=== PATIENT | male | born 1995 | race Caucasian/White ===

== ENCOUNTER → 2017-10-03 17:35 | Outpatient (CLI) | payer BC, SELFPAY ==
[2017-10-03 18:00] LABS: Absolute Lymphocyte Count 1.95 X10^3/ul (0.83-4.51); Basophil# 0.02 X10^3/uL; Basophil% 0.2 % (0-1); Eosinophil# 0.12 X10^3/uL; Eosinophils% 1.1 % (0-5); Hemoglobin 13.9 g/dl (13.0-16.5); Lymphocyte # 1.95 X10^3/ul (4.0); Lymphocyte % 18.1 % (19-41); Mean Corp Hgb Conc 33.9 g/gl (32-36); Mean Corpuscular Hgb 30.3 pg (27.0-32.0); Mean Corpuscular Volume 89.5 fL (80-94); Mean Platelet Vol. 9.8 fl (6.2-12.0); Monocyte# 0.69 X10^3/uL; Monocyte% 6.4 % (0-10); Neutrophil # 8.01 X10^3/uL (2.7-7.7); Neutrophil % 74.1 % (47-70); Platelet Count 268 K/mm3 (150-450); RBC Distribution Width CV 12.6 % (11.6-14.6); RBC Distribution Width SD 40.8 fl (35.1-43.9); Red Blood Count 4.58 M/mm3 (4.6-6.2); White Blood Count 10.8 K/mm3 (4.4-11.0)
[2017-10-03 18:02] LABS: POSITIVE COUNT NO; POSITIVE DIFFERENTIAL NO; POSITIVE MORPHOLOGY NO
[2017-10-03 18:30] LABS: AST(SGOT) 31 U/L (15-37); Alanine Aminotransfer ALT/SGPT 79 U/L (16-61); Albumin, Serum 4.2 g/dL (3.2-5.0); Alkaline Phosphatase 88 U/L (45-117); Anion Gap 10 (5-15); BUN 17 mg/dL (7-18); BUN/Creat Ratio 19.3 RATIO (10-20); Calcium,Total 8.8 mg/dL (8.5-10.1); Chloride 106 mmol/L (98-107); Creatinine, Serum 0.88 mg/dL (0.70-1.30); EST Glomerular Filtration Rate 115 mL/min (>60); Est Glom Filt Rate - Afr Amer 139 mL/min (>60); Glucose 108 mg/dL (74-106); Potassium 3.6 mmol/L (3.5-5.1); Protein, Total 8.2 g/dL (6.4-8.2); Sodium Level 139 mmol/L (136-145); Thyroid Stim Hormone (TSH) 1.54 uIU/mL (0.358-3.74)
== END ==
DX: F19.10 Other psychoactive substance abuse, uncomplicated (principal); R53.83 Other fatigue; Z79.899 Other long term (current) drug therapy
CPT/HCPCS: 36415; 80053; 84443; 85025

== ENCOUNTER 2019-02-08 18:48 | Emergency (ER) | payer BC, SELFPAY ==
[2019-02-08 18:49] VITALS: BP 135/79; PULSE 105; RESP 16; TEMP 36.7; O2SAT 98; BMI 35.5
--- NOTE | 2019-02-08 19:06 | ED.DCSUM_ITS ---
- ER Visit Summary Date of Service: 02/08/19 Chief Complaint: Depression with suicidal ideation History of Present Illness: The patient is a 23 M who presents with depression and suicidal ideation that became worse tonight while he was at work. Patient states he has been getting progressively worse over the past 2 weeks. Patient states tonight at work he was having feelings of suicide. Patient states he thought of hanging himself from a hoffmann at work or jumping into a vat of boiling lead at work. Patient states he has an appoint with at the [facility] on 02/20/2019. Patient states he is had family stressors at home which has made his depression worse. Patient states that he also has stress at work which makes his depression worse. Physical Examination: Vital signs are stable. Patient is afebrile. Patient is in no acute distress. Oral mucosa is pink and moist. Neck is supple. Trachea is midline. There is no JVD noted. Heart was regular rate and rhythm. Lungs are clear and equal bilateral. Abdomen is soft. Bowel sounds are normal. There is no tenderness. There is no guarding noted. Skin is warm dry. Cranial nerves II through XII are intact. There are no focal motor or sensory deficits noted. Patient does have a depressed mood and flat affect. Currently, patient is denying suicidal ideation. Test Results: CBC and basic metabolic profile were normal. Urine tox screen was positive for cannabinoids. Serum alcohol level was normal. Emergency Department Course and Treatment: Social work was in to evaluate the patient. She was able to arrange for outpatient follow-up tomorrow. Patient was instructed to follow-up as scheduled tomorrow. Patient understood and was agreeable with the plan. All questions were answered. Disposition: Discharge home Impression: Depression This note was generated with [employer] dictation software. It may contain incorrect words, spelling, and punctuation that were not noted in review of the chart prior to signing ED Disposition - Plan for ED Patient: Disposition: Home or Assisted Living Diagnosis: Depression Instructions: Depression Referrals: Care Physician,No Primary [Primary Care Provider] - Additional Instructions: Follow-up tomorrow as scheduled.
[2019-02-08 19:41] LABS: Absolute Lymphocyte Count 1.72 X10^3/uL (0.83-4.51); Absolute Neutrophil Count 7.9 X10^3/uL (2.0-7.7); Basophil# 0.06 X10^3/uL; Basophil% 0.6 % (0-1); Eosinophil# 0.07 X10^3/uL; Eosinophils% 0.7 % (0-5); Hematocrit 44.5 % (40-54); Hemoglobin 15.1 g/dL (13.0-16.5); Lymphocyte # 1.72 X10^3/ul (4.0); Lymphocyte % 16.1 % (19-41); Mean Corp Hgb Conc 33.9 g/dL (32-36); Mean Corpuscular Hgb 29.8 pg (27.0-32.0); Mean Corpuscular Volume 87.8 fL (80-94); Mean Platelet Vol. 10.5 fl (6.2-12.0); Monocyte# 0.89 X10^3/uL; Monocyte% 8.3 % (0-10); NRBC Flagged by Analyzer 0 % (0-5); Neutrophil # 7.91 X10^3/uL (2.7-7.7); Neutrophil % 74.1 % (47-70); Platelet Count 293 K/mm3 (150-450); RBC Distribution Width CV 12.2 % (11.6-14.6); RBC Distribution Width SD 39.2 fl (35.1-43.9); Red Blood Count 5.07 M/mm3 (4.6-6.2); White Blood Count 10.7 K/mm3 (4.4-11.0)
[2019-02-08 19:48] LABS: Anion Gap 5 (5-15); BUN 12 mg/dL (7-18); BUN/Creat Ratio 14.4 RATIO (10-20); Calcium,Total 9.4 mg/dL (8.5-10.1); Chloride 110 mmol/L (98-107); Creatinine, Serum 0.83 mg/dL (0.70-1.30); EST Glomerular Filtration Rate 122 mL/min (>60); Est Glom Filt Rate - Afr Amer 147 mL/min (>60); Estimated Creatinine Clearance 147.42 ml/min; Glucose 90 mg/dL (74-106); Potassium 4.3 mmol/L (3.5-5.1); Sodium Level 138 mmol/L (136-145)
[2019-02-08 19:49] VITALS: RESP 16
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
[2019-02-08 20:45] LABS: Amphetamine Urine VISTA NEGATIVE (<1000 ng/mL); Barbiturate Urine VISTA NEGATIVE (< 200 ng/mL); Benzodiazepine Urine VISTA NEGATIVE (< 200 ng/mL); Cocaine Urine VISTA NEGATIVE (< 300 ng/mL); Ecstacy Urine VISTA NEGATIVE (< 500 ng/mL); Methadone Urine VISTA NEGATIVE (< 300 ng/mL); PCP Urine VISTA NEGATIVE (< 25 ng/mL); THC Urine VISTA POSITIVE (< 50 ng/mL); Vista UDS pH Range 7
[2019-02-08 20:49] VITALS: RESP 17
[2019-02-08 21:05] VITALS: BP 128/72; PULSE 82; RESP 16; O2SAT 97
--- NOTE | 2019-02-09 18:55 | CM.ED ---
SOCIAL WORK FOLLOW UP CALL CALL TO PATIENT TO FOLLOW UP ON SAFETY PLAN FROM 02/08/19. PATIENT REPORTS ATTENDED [facility] APPOINTMENT THIS DAY AND PLANS TO START PROGRAM ON TUESDAY. ADAM VAZ, AVIONICS TEST TECHNICIAN.
== END 2019-02-08 21:06 | disposition home or self-care (01) ==
PROVIDERS: Emergency Provider Emergency Medicine
DX: F32.9 Major depressive disorder, single episode, unspecified (principal); R45.851 Suicidal ideations; R06.00 Dyspnea, unspecified
CPT/HCPCS: 36415; 80048; 80307; 80320; 85025; 99283; G0480

== ENCOUNTER 2019-02-13 09:00 | Outpatient (RCR) | payer BC, SELFPAY ==
--- NOTE | 2019-02-13 09:10 | BH.SGPN.GN ---
Behaviors/Verbalizations/Mental Status: [] Eye contact is good. Motor activity is appropriate. Appearance is casual. Speech is Appropriate. Mood is depressed. Affect is flat. Thoughts are linear and logical. No evidence of psychosis. Reviewed daily check in sheet and no reports of suicidal ideations or intent. Client Response/Progress/Benefit: [] Pt spoke when prompted. This was pt's first day in IOP. Shared with the group that he is in IOP because her needed help sooner rather than later. Discussed increase in depression which is impacting his functioning. Group was supportive and welcoming which was beneficial. Quiet however attentive. Will continue in IOP to maintain safety, prevent decompensation, and increase healthy coping skills. Narrative Note: []
--- NOTE | 2019-02-13 10:10 | BH.SGPN.GN ---
Behaviors/Verbalizations/Mental Status: []Pt eye contact fair, casually dressed, motor activity appropriate, speech normal rate and tone, mood anxious and depressed, flat affect, thoughts linear and intact, no evidence of delusions or hallucinations. Client Response/Progress/Benefit: []Client passive participant during group discussion AEB pt not providing input, however did appear to listen attentively to others comments. Client appeared to connect with others comments about importance of communicating needs with support people as shown by pt nodding her head in agreement. Client listened to group brainstorm about potential consequences of not having a support system. Group identified benefits of social support as gaining a different perspective, provide validation, help recognize warning signs, provide additional insight, and help us see personal strengths. Client was engaged during the group activity and showed increased engagement as shown by client communicating with peers and cooperating throughout. Appeared to benefit from gaining awareness of barriers that keep people from seeking social support as well as connecting with peers. Client's first day in IOP. Client to continue IOP to increase healthy coping skills, identify and challenge negative thoughts, and prevent decompensation. Narrative Note: []
--- NOTE | 2019-02-13 11:13 | BH.SGPN.GN ---
Behaviors/Verbalizations/Mental Status: []Client alert and oriented, casually dressed and groomed. Eye contact good. Motor activity appropriate. Speech soft. Affect flat, mood depressed. Thoughts linear, logical, no signs of hallucinations or delusions. Client Response/Progress/Benefit: []Client responded well to session, Participating in small group discussion, but overall quiet. Client helped the group discuss and identify different social supports as well as the benefits of different supports. The group identified examples of personal, self-help, professional, spiritual, and co-worker social supports. Group identified benefits of each type of social support. Client reported he wants to improve his self-help supports because client thinks this will motivate client to ask for help.? Client identified barriers keeping client from reaching out to support such as talking himself out of it. Client reported he plans to work on using positive self-talk to overcome his barrier. Client appeared to benefit from increasing understanding of different types of social support and identifying ways he can improve. Client?s first day of IOP, will continue IOP to prevent decompensation of depressive symptoms.?
--- NOTE | 2019-02-13 22:17 | BH.MTP ---
Master Treatment Plan - Patient Information Program Physician:: Dr. Brody Primary Therapist:: Syl Martines, [facility] - Psychiatric Diagnoses Psychiatric Diagnoses:: Major Depressive Disorder, Severe without psychotic features; Anxiety Disorder NOS; mild cluster b traits Diagnosis Code(s):: F33.2 - Estimated LOS Estimated LOS (in weeks):: 6 Problem/Goal #1 - Problem/Goal #1 Stated Goal:: Client will reduce depression, feelings of hopelessness, and suicidal ideation due to Major Depressive Disorder through Intensive Outpatient Program. Description of Barriers: Pt's negative thinking, suicidal ideation, past alcohol abuse, isolative behaviors, and limited social support are all potential barriers to progress. Functional Impact: Pt's anxiety and depression impacting pt's social relationships because not getting out of the house. Pt's anxiety has impacted pt's job performance AEB pt having multiple panic attaks while at work. Prior to admission pt was having suicidal ideation with ideas of hanging self at work or jumping into large barrels of chemicals at work. Pt not funtioning at baseline. Goal Relevant Strengths/Supports: Pt intelligent, resilient, and expresses motivation to get better. - Objectives Objective #1 Stated Objective: Identify and replace 3-4 negative self-talk messages that reinforce depressive symptoms. Interventions: Therapist will help client identify distorted, negative beliefs about self and world and replace those messages with positive, affirmative messages. Discharge Criteria: Client will have achieved this goal when can identify at least 3 negative self-talk messages and replace those messages with positive, affirmative messages. Target Date: 03/27/19 Review Date: 03/13/19 Objective #2 Stated Objective: Pt will decrease depressive symptoms AEB pt?s score on the DSM 5 cross-cutting measure and improve pt?s daily functioning. Interventions: Through groups and individual therapy, pt will be provided with education on cognitive distortions, mistaken beliefs, and identifying and combating negative self-talk. Therapist will assist pt with getting back into the activities she once enjoyed as well as increasing healthy coping strategies. Discharge Criteria: Pt will have met this goal when pt?s score on the DSM 5 cross cutting measure for depression has been decreased and per pt?s report daily functioning has improved. Target Date: 03/27/19 Review Date: 03/13/29 Problem/Goal #2 - Problem/Goal #2 Stated Goal:: Reduce overall frequency, intensity, and duration of the anxiety so that daily functioning is not impaired. Description of Barriers: Pt's negative thinking, suicidal ideation, past alcohol abuse, isolative behaviors, and limited social support are all potential barriers to progress. Functional Impact: Pt's anxiety and depression impacting pt's social relationships because not getting out of the house. Pt's anxiety has impacted pt's job performance AEB pt having multiple panic attaks while at work. Prior to admission pt was having suicidal ideation with ideas of hanging self at work or jumping into large barrels of chemicals at work. Pt not funtioning at baseline. Goal Relevant Strengths/Supports: Pt intelligent, resilient, and expresses motivation to get better. - Objectives Objective #1 Stated Objective: Client will identify 2-3 coping strategies to use to manage anxious symptoms. Interventions: Therapist will help client process triggers to increased symptoms, and then identify ways to manage these feelings and thoughts. Therapist will also work on helping client feel less isolated and understand better behaviors and escalating tendencies. Discharge Criteria: Client will have met this goal when can consistently use at least 2 healthy coping strategies to manage anxious symptoms. Target Date: 03/27/19 Review Date: 03/13/19 Objective #2 Stated Objective: Pt will decrease anxious symptoms AEB pt?s score on the DSM 5 cross-cutting measure improve pt?s daily functioning. Interventions: Through groups and individual therapy, pt will be provided education about anxiety?s impact on body and common physiological reaction to anxiety. Therapist will teach pt appropriate breathing techniques and build healthy coping skills to manage daily anxieties. Discharge Criteria: Pt will have met this goal when pt?s score on the DSM 5 cross cutting measure for anxiety has been decreased and per pt?s report daily functioning has improved. Target Date: 03/27/19 Review Date: 03/13/19
--- NOTE | 2019-02-14 09:59 | BH.DR.ITP ---
Initial Treatment Plan - Patient Information Visit Information: ADMISSION DATE: EXPECTED LOS: 4-6 weeks - Problems/Symptoms Problem #1:: Depression Symptom:: Sadness, hoplessness, passive thoughts of , isolating behavior Problem #2:: Anxiety Symptom:: rumination
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
--- NOTE | 2019-02-14 10:11 | BH.SGPN.GN ---
Behaviors/Verbalizations/Mental Status: [Client alert and oriented, casually dressed and groomed. Eye contact fair. Motor activity appropriate. Speech within normal limits, quiet. Affect constricted, mood depressed. Thoughts linear, logical, no signs of hallucinations or delusions. ] Client Response/Progress/Benefit: [Pt receptive of session, attentive and taking notes though elected not to provide input due to anxiety. Pt connected with discussion on different types of anxiety, as well as the difference between ?normal? anxiety and anxiety disorders. Pt appeared to relate to the group?s examples of the various ways anxiety manifests and symptoms associated with thoughts, physical symptoms, and safety behaviors. This was evidenced by nodding and taking notes. Pt gained awareness of personal physical symptoms which included: feeling weighed down, tight chest, warmer body temperature, blurred vision, and numbness. Pt also identified safety behaviors he has engaged in that provide short term relief but increase anxiety over time. Pt?s safety behaviors included: isolating, dissociation, sleeping, feeling dazed. Pt appeared to benefit from gaining insight to safety behaviors and how anxiety manifests itself, as well as harmful impact of safety behaviors on mental health. Pt appears to be progressing with increasing awareness of his symptoms though progress difficult to infer given limited verbal engagement. Will continue IOP to maintain gains, further improve functioning, and decrease depression.] Narrative Note: []
--- NOTE | 2019-02-14 10:37 | BH.NOTE ---
BH: Inpatient Note - Notes Behavioral Health Inpatient Note: Per written order from Dr. Katz, the following prescription was called into [facility] pharmacy in [place], [place]: Zoloft 50mg PO daily #30, NO refills Ori Owens, MSN, RN
--- NOTE | 2019-02-15 11:13 | BH.SGPN.GN ---
Behaviors/Verbalizations/Mental Status: []Client alert and oriented, casual in appearance. Eye contact good. Motor activity appropriate. Speech within normal limits. Affect depressed. Mood anxious and depressed. Thoughts linear, logical, no signs of hallucinations or delusions. Client Response/Progress/Benefit: []Pt passive participant AEB pt not providing any input during discussion, however pt did appear to listen attentively to peers as shown by pt nodding his head to others comments. Pt appeared to connect with the different relaxation skills discussed. Pt completed worksheet identifying what relaxation skills currently use to manage anxiety and identified what skills he would be willing to try to help manage anxious symptoms. Pt identified he is willing to try the following relaxation skills: putting up lights in his house for calming effect, try different types of meditation, yoga, and boxing. Pt seemed to benefit from increased awareness of healthy skills to manage anxious symptoms and identifying skills willing to practice outside treatment environment. Pt to continue IOP level of care to decrease depression, increase healthy coping skills, and prevent decompensation. Narrative Note: []
--- NOTE | 2019-02-21 08:55 | BH.COMM_ITS ---
Communication Note - Communication with Client Communication Note: Completed intake paperwork with pt today. Completed the [place] Suicide Severity Scale (CSSR-S) Lifetime Recent to assess for suicidal risk. Client has history of two interrupted attempts one in 2017 in which client was going to drive under the influence to get a gun with intent to kill himsef, but his friends stopped him. Client reported in 2018 in which client was going to jump off his two story balcony, but his friends stopped him getting outside. Client reported in the past month he has had suicidal thoughts with methods and intent, denies plan. Client stated he has thought about jumping into 1000 degree liquid metal while at work or hanging himself from a hoffmann while at work. Client reported about two weeks he had some intent to act on the thoughts, but never made any actions towards attempting suicide. Client reports in the past month he has suicidal thoughts less than once a week, which is less frequent compared to his lifetime. Client reported his suicidal thoughts last less than an hour and he can control the thoughts with some difficulty. Client reported his family, friends, and hope for a positive future have deterred him from attempting suicide in the last month. Client denies current suicidal thoughts, intention and plan. Per the CSSR-S pt has a high risk for suicide. Client's suicidal lethality will be continued to monitored throughout the program. Client willing to plan for safety. Client denies access to any weapons. Client feels able to maintain safety, aggreeable to call 911 or go to nearest emergency room if feels unable to maintain safety.
--- NOTE | 2019-02-21 09:36 | BH.COMM_ITS ---
Communication Note - Communication with Client Communication Note: Pt called today to cancel attending IOP this week. Pt stated he hasn't been able to attend IOP this week due to his roommate having a family crisis and pt needing to help his parents this week. Pt reported he still wants to do the program, but too many things have occurred this week that have made that difficult. Pt stated he will return to IOP on Tuesday02/26/19. Pt denied current suicidal ideation, plan or intention to date. This science writer offered pt an individual session for either tomorrow or Tuesday. Pt stated he would think about it and call this science writer to schedule an individual session if he needed it.
== END 2019-02-26 23:59 ==
LOC: BHIOP 09:00
PROVIDERS: Referring Provider Psychiatry & Neurology Psychiatry; Visit Provider Psychiatry & Neurology Psychiatry
DX: F33.2 Major depressive disorder, recurrent severe without psychotic features (principal); F41.9 Anxiety disorder, unspecified; R45.851 Suicidal ideations
CPT/HCPCS: H0035; 90853

== ENCOUNTER 2019-02-27 09:00 | Outpatient (RCR) | payer BC, SELFPAY ==
--- NOTE | 2019-02-27 10:10 | BH.SGPN.GN ---
Behaviors/Verbalizations/Mental Status: []Client alert and oriented, casually dressed and groomed. Eye contact fair. Motor activity appropriate. Speech within normal limits. Affect flat, mood depressed. Thoughts linear, logical, no signs of hallucinations or delusions Client Response/Progress/Benefit: []Client passive participant. Appeared to be listening to peers, but he declined to share. Group worked together to identify barriers to making changes or taking action in their lives which included: fear of the unknown, the perception of others, fear of leaving one?s comfort zone, overthinking, and lack of motivation. Group also identified the benefits of change which included; improved relationships, improved mental wellness, increased confidence, and feelings of accomplishment. Client declined to share what he feels is taking control over his mental wellness. Benefited from group through awareness of personal areas he wants to improve and benefits to taking action towards mental wellness. To continue IOP level of care to prevent further decompensation and reduce isolative behaviors.
--- NOTE | 2019-02-27 11:18 | BH.SGPN.GN ---
Behaviors/Verbalizations/Mental Status: []Client alert and oriented, casual dress, hygiene tended to. Eye contact fair. Motor activity appropriate. Speech within normal limits. Affect flat, mood depressed. Thoughts linear, logical, no signs of hallucinations or delusions. Client Response/Progress/Benefit: []Pt passive participant AEB pt not providing input throughout session, however appeared attentive to others comments. Pt listened attentively to group discussion about impact lack of action has on progress. Pt completed worksheet in which pt identified a problem area to focus on, a SMART goal to help him work on problem area, and identify additional supports needed to be successful. Pt identified he wants to work on increasing his motivation. Pt identified his SMART goal is to engage in 1-2 activities per week to increase his motivation level to accomplish more in his day. Pt identified making a list of things he wants to get done as something that could help support him with accomplishing identified goal. Pt progress limited due to pt?s inconsistent attendance and limited verbal participation during group sessions. Pt to continue IOP to prevent decompensation, increase healthy coping skills, and identify and challenge distorted thoughts. Narrative Note: []
--- NOTE | 2019-02-28 09:33 | BH.NA_ITS ---
Physical Data - Vital Signs Pulse Rate: 72 Respiratory Rate: 16 Blood Pressure: 116/76 - Height/Weight Height: 1.8 m Weight:: 113.398 kg Weight in Pounds: 250.0 lbs Current Medication Compliance - Medication Compliance Do you take your medication as prescribed?: Yes Do you need assistance with taking medication?: No Have you had side effects from medication?: No Nutritional History - Appetite Nutritional Instructions:: If client shows signs of a swallowing problem, weight change of 10 pounds or more in the last month, or is on a diabetic diet, the physician will review and request a dietitian consult, as appropriate. All unintentional weight loss will be referred to the physician for decision on need for dietitian consult. Describe your appetite:: Fair, Poor Have you noticed a change in your eating habits lately?: Yes - decreased appetite without significant weight loss Functional Assessment - Sleep Pattern Describe any problems with sleeping: Mauri describes difficulty falling asleep most nights. - Activities Motor Activity:: Functional Sensory/Communication Assess - Communication Problems Do you have difficulty understanding what people are saying?: No Do you have trouble putting your thoughts into words or expressing what you want to say?: No Do people ever have trouble understanding what you say?: No What is your primary language?: Lao Learning Assessment - Learning Barriers Learning Barriers:: Ready to learn Medical Problems/History - Pain Assessment Do you have acute or chronic pain?: No - Additional History Additional comments:: see PMHx in Summary Surgical History - Surgical History Have you had any surgeries? If so, list type and date:: Yes - appy Substance Abuse - Substance Abuse Please describe substance abuse in the last 30 days:: Client notes occassional marijuana use. He does have a history of ETOH abuse, but has been sober x2 years. Denies tobacco use. Mental Status Summary - Mental Status Significant Findings/Observations on Appearance and Mood:: Mauri is A&O x4, cooperative with interview, and makes good eye contact. Steady gait. Appropriate grooming and hygiene. Casually dressed. Normal activity while seating, frequent yawning. Speech is clear and normal rate and volume. Mild anhedonia. Mood congruent affect. Logical associations. Normal process. No symptoms of delusi ons. Denies hallucinations, SI, and HI. Suicide Assessment - Suicidal Ideation Are you currently or have you been suicidal in the past?: Yes Suicidal Intentional Rating Scale (SIRS): Suicidal thoughts (past) Physician Notification: If Active suicidal thoughts/Will not contract for s afety is checked, contact physician and document in the Physician Notification section below. Past Psychiatric History - MH Treatment Hx ECT Therapy Details:: N/A Fall Risk Assessment - Age Age: Less than 60 - Mental Status Mental Status: Willing & able to ask for assistance when needed - Physical Status Physical Status: No problems - Impairments Impairments: None - Elimination Elimination: Continent AND independent - Gait or Balance Gait or Balance: Walks independently - Hx of Falls History of falls in the past 6 months: No known history - Medications/Substances Psychotropics:: Antidepressants Medications/substances used within the past 24 hours or ordered to administer: 1-2 of the medications/substances listed above - Total Score Total Points:: 1 RN Summary of Impressions - Impressions Recommendations: Include psychiatric and medical issues, treatment planning recommendations, and discharge planning needs. Impressions: Psychiatric Issues: MDD, KEYLA, PTSD Impression: General Medical Conditions: N/A Impressions: Treatment Planning Recommendations: Client denies any side effects from starting Zoloft. Client notes that he has been more tired, but this may related to his work schedule more than the medication. He notes that his overall mood is somewhat improved in the past two weeks. - Level of Care How do the client's current symptoms and functional deficits support need for this level of care?: Currently denies any SI, but does not some passive thoughts of and wanting to start drinking and using marijuana again; he has been able to challenge and overcome these thoughts. Mauri's mental health has been decompensating for sever months; he is unable to recognize a specific incident or stressor that triggered this decline. Client does have a good support system, including his family and roommates. He endorses social avoidance, isolation, decreased appetite, and difficulty falling asleep. IOP will promote gains and prevent further decompensation.
[2019-02-28 09:39] VITALS: BP 116/76; PULSE 72; RESP 16
--- NOTE | 2019-02-28 10:09 | BH.SGPN.GN ---
Behaviors/Verbalizations/Mental Status: [Client alert and oriented, casually dressed and groomed. Eye contact fair. Motor activity appropriate. Speech within normal limits. Affect congruent, mood anxious, depressed. Thoughts linear, logical, no signs of hallucinations or delusions.] Client Response/Progress/Benefit: [Client was a passive participant throughout, however did well to engage via note-taking, and listening attentively to peers, and nodding in agreement. The group discussed the quote and how the emotion anger is not good or bad, but one can respond to anger in healthy or harmful ways. Client worked with the group to define anger and its causes, as well as the internal and external impacts of anger. Group identified potential consequences of unhealthy management of anger to include: increased stress, loss of relationships, guilt, more problems being created, physical pain, and worsening mental health symptoms. Client identified underlying factors of his anger which included: anxiety, sadness, feeling like a disappointment/failure, being dismissed by others, and being overwhelmed/stressed. Client stated isolating, shutting down, and giving up/quitting are common responses he has when feeling angry. Benefited from group by increasing awareness of the negative impacts of unmanaged anger and underlying factors that contribute to personal anger. Progress noted as client reports increased self-awareness and ability to cope with anxiety and depression related sx. Will continue IOP tx to further reduce depression and isolation, increase motivation and use of social supports, and promote mood stability.] Narrative Note: []
--- NOTE | 2019-02-28 11:15 | BH.SGPN.GN ---
Behaviors/Verbalizations/Mental Status: []Client alert and oriented, casually dressed and groomed. Eye contact good. Motor activity appropriate. Speech within normal limits. Affect flat, mood depressed. Thoughts linear, logical, no signs of hallucinations or delusions Client Response/Progress/Benefit: []Client responded well to session, quiet, but participating in the activity. Client able to connect how managing anger takes patience, calming skills, and multiple efforts. Group identified the benefits of effectively managing anger which included; advocating for oneself, reducing consequences, reducing mental health symptoms, and expressing one?s needs. Client appeared attentive as the group identified coping skills to more effectively manage anger which included; deep breathing, self-compassion, taking a step back, DDD, challenging perspective, and using S.T.O.P. Client appeared to benefit from gaining coping skills to more effectively manage anger. Progress limited as client?s attendance in IOP has been variable. Will continue IOP level of care to prevent decompensation and improve mood stability.
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
--- NOTE | 2019-03-06 09:01 | BH.SGPN.GN ---
Behaviors/Verbalizations/Mental Status: []Client alert and oriented, casual dress, hygiene tended to. Eye contact fair. Motor activity appropriate. Speech within normal limits. Affect flat, mood anxious. Thoughts linear, logical, no signs of hallucinations or delusions. Reviewed client?s symptom tracker, no signs of suicidal ideation, plan, or intent as of today. Client Response/Progress/Benefit: []Pt responded well to session AEB pt sharing his thoughts and feelings openly with group and listened attentively to peers. Emotion for today is anxious. Pt reported current stressor is worried about job security because his job has cut back his overtime and possibly won't get overtime for the rest of the year. Pt stated he is anxious if he doesn't get his overtime hours then he won't be able to afford to visit his family over the holidays. Pt noted progress as I'm starting to enjoy life little more and not feeling as anxious. 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 Progress noted in application of healthy coping skills to manage anxiety outside of treatment environment. Continued IOP tx recommended to maintain gains, prevent decompensation, and continue to utilize healthy coping skills. Narrative Note: []
--- NOTE | 2019-03-06 10:13 | BH.SGPN.GN ---
Behaviors/Verbalizations/Mental Status: []Client alert and oriented, casually dressed and groomed. Eye contact good. Motor activity appropriate. Speech within normal limits. Affect constricted, mood anxious. Thoughts linear, logical, no signs of hallucinations or delusions. Client Response/Progress/Benefit: []client engaged throughout group discussion and activity. Contributed to discussion on quote of the day as he shared ?your problems aren?t just going to fix themselves, it takes effort.? Client reported one needs to use their resources and make goals to grow. Group worked together to come up with common negative forces in life which can hold them back from growth. These included; toxic relationships, negative thoughts, cognitive distortions, lack of self-care, and trauma. Group then worked together to identify common positive forces which help us grow. These included; healthy coping skills, positive support, self-care, patience, realistic and positive thinking, and self-awareness. Client was attentive during psychoeducation on the importance of utilizing many forces to help one grow. Benefited from group with increased insight and awareness on the impact of negative and positive forces on mental wellness. Client?s attendance has been variable which may be hindering his ability to work towards treatment goals. Will continue IOP to prevent decompensation and reduce isolation.?
--- NOTE | 2019-03-06 11:11 | BH.SGPN.GN ---
Behaviors/Verbalizations/Mental Status: [Client alert and oriented, casually dressed and groomed. Eye contact fair to good. Motor activity appropriate. Speech within normal limits. Affect constricted, mood anxious, dysthymic. Thoughts linear, logical, no signs of hallucinations or delusions.] Client Response/Progress/Benefit: [Client willing to participate in activity and provided supportive feedback as well as willing to consider suggestions from fellow participants throughout. He engaged in discussion connecting activity to review of how positive and negative forces impact life and mental wellness and the importance of balancing forces in life. Client identified personal positive forces that aid in progressing toward mental health goals include: personal supports, having a consistent paycheck, family, having increased ability to manage anxiety, willingness to ask for help, and therapy. Client indicated personal negative forces include: difficulties managing mental health sx, fear of failure, difficulties in communicating, loneliness, and negative self-talk/low self-esteem. Progress noted in client ability to identify ways in which internal forces can impact personal growth. Client seemed to benefit from increased awareness of personal positive and negative forces in life and impact they have on mental health and wellness. Client to continue IOP level of care to continue to decrease anxiety and depression, improve ability to regulate emotions, promote increased use of skills learned, and prevent decompensation.] Narrative Note: []
--- NOTE | 2019-03-06 22:13 | BH.MDN ---
Multi-Disciplinary Note - Note 60-min Individual Time Started:: 12:10 Date: 03/06/19 Purpose of session/treatment goals addressed:: Purpose of session was to assess pt's current symptoms and stressors. Other topics included: increasing awareness to anxiety triggers and challenging distorted thoughts. Eye Contact:: Fair Motor Activity:: Appropriate Appearance:: Casual Speech:: Appropriate Mood:: Anxious, Dysthymic Affect:: Constricted Thoughts:: Linear, Logical, No evidence of hallucinations/delusions noted Staff Interventions:: Therapist used open ended questions to elicit pt's current symptoms and stressors. Therapist worked with pt to identify anxiety triggers. Therapist assisted pt with challenging distorted thoughts. Provided support by using active listening. Client Response:: Pt reported current stressor is uncertainity of his job security since his workplace recently cut some of his hours. 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 Pt reported he knows he can get another job, but doesn't want to have to learn a new job or lose any wages. With assistance from therapist able to recognize this situation is out of his control. Recognizes he can focus on making sure he completes his daily responsibliites while at work. When discussing anxiety triggers pt stated going out in public and being in crowded places causes increased anxiety. Pt stated as a result he tends to avoid going out in public and doesn't go anywhere there will be large crowds. Pt reported he can get out of the house to hang out with his group of friends, but typically only when his friends are just hanging out at a house. Pt shared the thought of going out in public makes think a lot of what-if thoughts. Pt gave example what if I into someone that I have bad blood with? and what if I get into a fight. Pt stated in the [place] town [place] in he has negative relationships fromt he past and he is anxious of how he would react if runs into certain people. Pt receptive to therapist assisting pt with challenging his distorted thoughts. Pt stated he is starting to recognize he is using catastrophizing thoughts and predicting the future. Risks/Concerns:: denies current suicidal ideation, plan or intention to date. Progress Toward Goals/Plan:: Progress noted with pt's increased awareness of anxiety triggers and how current response of avoidance is reinforcing anxiety symptoms. Pt to continue IOP level of care to increase awareness, challenge distorted thoughts and prevent decompensation. Time Stopped:: 13:10
--- NOTE | 2019-03-07 08:42 | BH.COMM ---
Communication Note - Communication with Client Communication Note: was scheduled to see psychiatry today however cancelled.
--- NOTE | 2019-03-08 22:14 | BH.MDN ---
Multi-Disciplinary Note - Note 60-min Individual Time Started:: 13:50 Date: 03/08/19 Purpose of session/treatment goals addressed:: Purpose of session was to assess pt's current symptoms and stressors. Other topics: reviewed homework from last session, increased awareness of physiological symptoms for agitation and anxiety, and discussed healthy coping skills. Eye Contact:: Fair Motor Activity:: Appropriate Appearance:: Casual Speech:: Appropriate Mood:: Depressed Affect:: Constricted Thoughts:: Linear, Logical, No evidence of hallucinations/delusions noted Staff Interventions:: Therapist used open ended questions to elicit pt's current symptoms and stressors. Therapist reviewed homework from last individual therapy session. Therapist provided education about importance of recognizing physiological symptoms of anxiety and agitation. Therapist assisted pt with identifying healthy coping skills can use to help manage anxiety and agitation. Client Response:: Pt reported he completed homework of identfying triggers for anxiety and agitation. Anxiety triggers include: feeling overwhelmed or behind at work, uncertainity if doing something right, worried going to return to unhealthy coping, and when has urges to drink. Reported agitation triggers include: when things aren't going right, other people's mistakes, and wondering if he is doing good enough job. Pt stated anxiety physical symptoms include: shaking, restlessness, energy through his body, and nausea. Identified agitation physical symptoms to include: increased body temperature, feeling energy through body, and tense muscles. Pt stated current healthy copng uses for anxiety includes: breathing, laying down and going for awalk. Identified current coping skills for agitation include: changing envrionment and taking a break. Pt expressed understanding imporance of recognizing his warning signs so can utilize healthy coping skills sooner. Pt connected with learning about different breathing and mindfulness skills can utilize to manage anxiety and agitation. Risks/Concerns:: Denies current suicidal ideation, plan or intention to date. Progress Toward Goals/Plan:: Progress noted with increased awareness of triggers, warning signs, and healthy coping skills. Pt continues to struggle with urges to drink and distorted thoughts telling him to give up trying. Pt recommended to continue IOP to challenge distorted thoughts, decrease isolative behaviors, and prevent decompensation. Time Stopped:: 14:50
--- NOTE | 2019-03-12 10:07 | BH.SGPN.GN ---
Behaviors/Verbalizations/Mental Status: []Client alert and oriented, neatly dressed and groomed. Eye contact good. Motor activity appropriate. Speech within normal limits. Affect congruent, mood anxious, depressed. Thoughts linear, logical, no signs of hallucinations or delusions. Client Response/Progress/Benefit: []Client passive participant during group AEB client attentively listening and nodding to comments. Client agreed with peers that it is important to have social supports, but one can have unrealistic expectations for their supports which can cause problems. Client listened as the group brainstormed potential consequences of not having a support system. Client listened as group identified benefits of social support as building trust, less anxiety, less loneliness, different perspective, sense of purpose, resources, hope, and accountability. Client was active during the group activity and was contributing ideas. Appeared to benefit from gaining awareness of barriers that keep people from seeking social support as well as identifying the benefits of increasing support. Client is quiet during group, so progress is difficult to measure in the group setting. Client will continue IOP level of care as his symptoms continue to impact his daily functioning.
--- NOTE | 2019-03-12 11:08 | BH.SGPN.GN ---
Behaviors/Verbalizations/Mental Status: [Pt alert and oriented, eye contact fair to good, casually dressed, motor activity appropriate, speech normal rate and tone, mood anxious and depressed, congruent affect, thoughts linear and intact, no evidence of delusions or hallucinations.] Client Response/Progress/Benefit: [Client a semi-active participant AEB client contributing to discussion when prompted, listened attentively to others, and taking notes. Client worked with the group to make connections between barriers faced in the challenge activity and strategies for managing these barriers with utilizing social supports in daily life. Client reflected that a personal barrier in using current supports is pushing people away due to anxiety and fear of being judged. Client contributed to discussion about the different types of support and benefits different types of support can provide. Client worked with the group to identify strategies for improving development of new supports and better utilization of current supports. Client identified he would like to improve internal support by finding more time to engage in self-care activities because he would be able to decrease isolation and anxiety as a result. Client seemed to benefit from identifying a type of support he would like to improve upon and creating actionable steps to promote follow-through. Client to continue IOP level of care to prevent decompensation, increase use of healthy supports, and improve anxiety and depression management skills.] Narrative Note: []
--- NOTE | 2019-03-13 09:02 | BH.SGPN.GN ---
Behaviors/Verbalizations/Mental Status: []Client alert and oriented, casually dressed and groomed. Eye contact good. Motor activity appropriate. Speech within normal limits. Affect flat, mood dysthymic. Thoughts linear, logical, no signs of hallucinations or delusions. Reviewed client?s symptom tracker, no risk for suicidal ideation, plan, or intent as of 03/13/19. Client Response/Progress/Benefit: []Client responded somewhat well to session, appeared attentive during peers? check-ins, but withdrawn when asked to share. Client declined to participate during his turn to check-in this morning. Client?s self-assessment scores were within his baseline, and there was no suicidal ideation. Client?s progress mild as client often declines to share during group sessions and his attendance is variable. Will continue IOP tx to prevent decompensation, decrease depressive symptoms, and increase application of coping skills.?
--- NOTE | 2019-03-13 10:10 | BH.SGPN.GN ---
Behaviors/Verbalizations/Mental Status: [] Eye contact is good. Motor activity is appropriate. Appearance is casual. Speech is Appropriate. Mood is depressed. Affect is flat. Thoughts are linear and logical. No evidence of psychosis. Client Response/Progress/Benefit: [] Pt was an active participant in group activity, however did not provide much insight during discussion. Pt was quiet however attentive when peers came up with a definition for coping which was how we deal with problems that we encounter. Group noted that coping skills can be healthy and unhealthy. Participated once or twice while group worked together to identify unhealthy coping skills which included; substance abuse, avoiding, isolating, lashing out, self-harm, over-thinking, spending money, eating, and escaping reality through TV/games. Group began to identify ways to break the cycle of unhealthy coping skills which included; awareness, addressing issues, and learning healthy ways to cope. Pt was an active participant in his small group. Narrative Note: []
--- NOTE | 2019-03-13 11:15 | BH.SGPN.GN ---
Behaviors/Verbalizations/Mental Status: []Pt alert and oriented, eye contact good, casually dressed, motor activity appropriate, speech normal rate and tone, mood dysthymic, constricted affect, thoughts linear and intact, no evidence of delusions or hallucinations. Client Response/Progress/Benefit: []Client listened attentively to peers and provided limited input during discussion. Client appeared to connect with the activity from second group and helped the group identify benefits of having a strong foundation of internal and external coping skills. Client helped the group discuss the different categories of coping skills and provided examples. Client agreed with peers it's important to use variety of coping skills. Client created a coping skills ?menu? from the five categories of coping skills. Client selected mindfulness and thought challenge as coping skills to try. Client appeared to benefit from increasing his repertoire of healthy coping skills. Progress noted in client?s increased self-awareness of how his unhealthy coping has impacted his mental health. Will continue IOP to stabilize moods, increase use of healthy coping skills and prevent decompensation. Narrative Note: []
--- NOTE | 2019-03-14 09:57 | BH.COMM ---
Communication Note - Communication with Client Communication Note: pt cancelled again today. Was scheduled to see psychiatry again today. Has missed appt with psychiatry the past two weeks.
--- NOTE | 2019-03-15 22:14 | BH.MDN ---
Multi-Disciplinary Note - Note 45-min Individual Time Started:: 13:53 Date: 03/15/19 Purpose of session/treatment goals addressed:: Purpose of session was to assess pt's current symptoms and stressors. Other topics included: identifying possible triggers for increased anxiety, assessing lethality, and reviewing healthy coping skills. Eye Contact:: Fair Motor Activity:: Appropriate Appearance:: Casual Speech:: Appropriate Mood:: Anxious Affect:: Constricted Thoughts:: Linear, Logical, No evidence of hallucinations/delusions noted Staff Interventions:: Therapist used open ended questions to elicit pt's current symptoms and stressors. Therapist processed recent increase in anxious symptoms. Therapist assessed pt's current suicidal lethality due to return of suicidal thoughts on Tuesday. Therapist reviewed with pt healthy coping skills to utilize to manage mental health symptoms. Provided support by using active listening and validating emotions. Client Response:: Pt reported on Tuesday he forgot to take his medications. Pt stated he noticed his motivation decreased and was apathetic. Pt stated while at work he experienced suicidal thoughts, but was able to manage his thoughts with self-talk. Pt reported on Tuesday when he had the suicidal thoughts he didn't have any intention and plan to act on the thoughts. Pt stated Tuesday was the first time he had suicidal thoughts in several weeks. Pt reported he made sure to take his medication on Tuesday. 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 Pt stated he is trying to manage his anxiety about work by focusing on what is actually happening, not looking at the what-ifs. Pt stated he might work on his resume just so he is prepared in case anything does happen to his job. Pt reported yesterday during group he was experiencing increased anxiety with panic like symptoms. Pt stated he started having thoughts about quitting IOP and going back to just drinking alcohol to cope. Pt shared he felt this way for about 20 minutes then his anxiety lessened. Pt reported overall he feels like his mood has been improving, experiencing happier days. Pt stated he has improved sleep, increased socialization, and maintaining sobriety. Pt reported this week he will focus on consistently taking his medications, using positive thinking, cooking his meals for lunch at work ahead of time, and going hiking. Risks/Concerns:: Denies current suicidal ideation, plan or intention to date. Pt had recent suicidal thought on Tuesday, which is first suicidal thought in several weeks. Pt attributes to having suicidal thought because didn't take his medication that day. Will continue to monitor lethality. Future focused. Agreeable to call 911 or go to nearest emergency room if feel unable to maintain safety. Progress Toward Goals/Plan:: Progress noted with pt utilizing healthy coping skills of thought challenge, hiking, decreasing isolation, and maintaining sobriety. Continues to struggle with anxious symptoms at work and when in large crowds. Pt recommended to continue IOP level of care to continue use of healthy coping, challenge distorted thoughts, and prevent decompensation. Time Stopped:: 14:45
--- NOTE | 2019-03-19 10:20 | BH.SGPN.GN ---
Behaviors/Verbalizations/Mental Status: [] Eye contact is poor. Motor activity is appropriate. Appearance is casual. Speech is Appropriate. Mood is depressed. Affect is flat. Thoughts are linear and logical. No evidence of psychosis Client Response/Progress/Benefit: [] Pt did not participate in group discussion. Passive participant in group activity. Attentive while peers worked together to define pitfalls in mental health which group identified were; hidden or unsuspected obstacles, emotional traps, when we defeat ourselves, and unforeseen obstacles which impact progress. Group discussed the impacts of pitfalls which can cause one to; give up, revert back to unhealthy coping, isolate, define oneself as a failure. Attentive as group briefly discussed the emotions and pitfalls which occurred during the activity noting that it caused anxiety, anger, fear, and at times they wanted to give up. Due to limited participation in group it is unknown if he was able to make connections between activity and MH. Narrative Note: []
--- NOTE | 2019-03-19 11:21 | BH.SGPN.GN ---
Behaviors/Verbalizations/Mental Status: []Client alert and oriented, casually dressed and groomed. Eye contact fair. Motor activity appropriate. Speech within normal limits. Affect constricted, mood euthymic. Thoughts linear, logical, no signs of hallucinations or delusions. Client Response/Progress/Benefit: []Client quiet during session, participating in small group discussion, but declining to share in the larger group setting. Client helped group process the activity and how it connects to pitfalls in real life. Client completed a worksheet where he identified personal pitfalls impacting mental health progress. Client declined to share his pitfalls with the group. Client recognized that in order to become less vulnerable to pitfalls it takes self-awareness and healthy coping skills. Client reported he wants to work on using the INGA (accomplishment, closeness, and enjoyment) strategy to promote productivity and increase motivation. Benefited from identifying personal pitfalls and strategies to overcome these pitfalls. Client self-reports reduced isolation, but he continues to be quiet during group sessions. Will continue IOP tx to promote the use of healthy coping skills and further reduce depressive symptoms. Narrative Note: []
--- NOTE | 2019-03-19 15:27 | BH.TPR ---
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 Active participant. Completed DSM-5 cross cutting scales which indicates a 52% reduction in symptoms since starting the program. Notes 33 % reduction in depression scores and 50% reduction in anxiety scores. Pt continues to utilize skills, but admits he sometimes struggles with consistent use of skills. Significant progress noted. DSM5 cross-cutting scales indicate reduced symptoms at 4 weeks. Better able to manage anxious symptoms while at work. Increased interest in activities. Decreased isolative behaviors. We discussed discharge. Plan is to discharge in 2 weeks. Given numbers to set up MH therapist and psychiatrist. Will continue in IOP to maintain gains and prevent decompensation. Treatment plan goals still left to accomplish Status of Current Problems and Symptoms: Struggles at times with isolation, limited support, anxiety, and hopelessness however much improved. Continues to decrease alcohol consumption, not drinking in an attempt to cope. Problem #1 Problem Name:: depression Status of Goals:: Pt is making progress on objectives 1 and 2. Obj 1- Able to identify a couple negative self-talk messages however struggles to replace w/o guidance. Obj. 2 - Notes 33% reduction in depression DSM5 QUESTIONAIRE. Team Recommendations:: Continue with IOP as he is responding well. Plan to discharge in 2 weeks. Problem #2 Problem Name:: Reduce overall frequency, intensity, and duration of the anxiety Status of Goals:: Pt is making progress on objectives 1 and 2. Has identified several coping strategies to utilize when overwhelmed. Sometimes struggles with consistently applying skills. Obj. 2 - Notes 50% reduction in depression DSM5 QUESTIONAIRE. Team Recommendations:: Continue with IOP as he is responding well. Plan to discharge in 2 weeks.
--- NOTE | 2019-03-19 22:15 | BH.MDN ---
Multi-Disciplinary Note - Note 30-min Individual Time Started:: 09:12 Date: 03/19/19 Purpose of session/treatment goals addressed:: Purpose of session was to assess pt's current symptoms and stressors. Other topics included: reviewing treatment progress, problem solving anxious situation, and identifying areas to continue working on in IOP. Eye Contact:: Good Motor Activity:: Appropriate Appearance:: Casual Speech:: Appropriate Mood:: Euthymic Affect:: Congruent Thoughts:: Linear, Logical, No evidence of hallucinations/delusions noted Staff Interventions:: Therapist used open ended questions to elicit pt's current symptoms and stressors. Therapist elicited pt's thoughts about treatment progress since starting IOP. Therapist assisted pt with problem solving specific anxious situation. Therapist worked with pt to identify areas want to work on in remaining time in IOP. Client Response:: Pt reported over the weekend he had fun hanging out with friends and went with a friend hiking. Pt stated his mood was positive thoughout the weekend. Pt identified treatment progress to include: decrease anxeity when around people, no longer being a recluse, decreased self-deprecating thoughts, increased motivation, and able to combat suicidal or negative thoughts. Pt stated currently having some anxiety about not knowing how best to support his roommate. Pt reported his roommate talks to him about how she is feeling and he doesn't know what to say so he tries to avoid having conversation with her. pt receptive to idea on talking openly with his roommate about how he can best support her. Pt stated in the last couple weeks of IOP treatment he wants to work on improve self-worth and continuing to challenge distorted thoughts. Risks/Concerns:: Denies current suicidal ideation, plan or intention to date. future focused. Progress Toward Goals/Plan:: Progress noted with pt reporting improved mood, decreased anxious symptoms, decreased isolative behaviors, and improved ability to challenge distorted thoughts. Continues to struggle with managing anxiety at times which leads to avoidance as a coping skill. Pt recommended to continue IOP to continue challenging distorted thoughts, improve self-worth, and prevent decompensation. Time Stopped:: 09:44
--- NOTE | 2019-03-20 10:08 | BH.SGPN.GN ---
Behaviors/Verbalizations/Mental Status: []Client alert and oriented, neatly dressed and groomed. Eye contact good. Motor activity appropriate. Speech within normal limits. Affect flat, mood dysthymic. Thoughts linear, logical, no signs of hallucinations or delusions. Client Response/Progress/Benefit: []Client was mostly a passive participant, but he took notes and often nodded. Client appeared to connect with the quote and the benefits of celebrating small steps taken to accomplish a goal. Group defined goals and identified the benefits of developing goals which included; improving self-confidence, gaining a sense of accomplishment, gaining a sense of purpose, increased motivated/productivity, and better mental health. Client agreed with peers that it is helpful at times to reevaluate and change one?s goal to promote mental wellbeing. Group also identified barriers to setting and accomplishing goals which include; fear, unrealistic expectations, lack of follow through, and not knowing where to start. Attentive during education on developing SMART goals. Benefited from increasing awareness of goal-setting methods and practicing goal setting. Progress noted as shown by client?s increased IOP attendance and report of reduced depressive symptoms. Will continue IOP tx to promote application of coping skills and further decrease depressive symptoms.?
--- NOTE | 2019-03-20 11:13 | BH.SGPN.GN ---
Behaviors/Verbalizations/Mental Status: [Client alert and oriented, casually dressed and appropriately groomed. Eye contact good. Motor activity appropriate. Speech within normal limits. Affect congruent, mood anxious and dysthymic. Thoughts linear, logical, no signs of hallucinations or delusions. ] Client Response/Progress/Benefit: [Pt attentive throughout, mostly quiet though nodded at times and provided some input throughout discussion. Engaged in creating own mental health SMART goal. Pt identified goal as: ?Reduce self-doubt and anxiety by taking 5 minutes to clear my mind and think about what?s going on around me?. Pt reported this goal will benefit him by increasing his positive thinking and improving ability to take proactive steps in managing anxious thoughts. Pt identified potential barriers to accomplishing goal to include: feelings of defeat, shutting down, and isolating. Pt reported he will overcome barriers by ?rising above and reminding myself that feelings aren?t in control of me? as well as ?Give myself a push and talk to someone?. Seemed to benefit from identifying a SMART goal and coming up with strategies to overcome potential barriers. Progress noted in pt ability to create a small relevant goal aimed at improving mental health symptoms. Pt to continue IOP to increase healthy coping skills, decrease depression, and prevent decompensation.] Narrative Note: []
--- NOTE | 2019-03-21 09:10 | BH.SGPN.GN ---
Behaviors/Verbalizations/Mental Status: [] Eye contact is good. Motor activity is appropriate. Appearance is casual. Speech is Appropriate. Mood is anxious. Affect is congruent. Thoughts are linear and logical. No evidence of psychosis. Reviewed daily check in sheet and no reports of suicidal ideations or intent. Client Response/Progress/Benefit: [] Pt spoke with prompted. Emotion for today is anxious. Pt shared with the group improved mood over the past week. Notes that while stressed he feels that he is more effective at managing his moods. Discussed some new coping skills which he has been utilizing more consistently. He is unclear what has triggered the change however believes IOP, med changes, and consistent counseling have played a big part. Smiled at times during group discussion. 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 Shared his business idea with peers. Benefited from group support and encouragement.Progress noted per pt report. Will continue in IOP to maintain safety, prevent decompensation, and increase healthy coping skills. Narrative Note: []
--- NOTE | 2019-03-21 10:20 | BH.SGPN.GN ---
Behaviors/Verbalizations/Mental Status: []Eye contact fair. Motor activity is appropriate. Appearance is casual. Speech is appropriate rate and tone. Mood is euthymic. Affect is congruent with mood. Thoughts are linear and logical. No evidence of psychosis. Client Response/Progress/Benefit: []Client was an active participant in group activity and discussion, providing insight throughout. Client connected with the topic and worked with group to identify common internal barriers that keep people stuck. Client identified his current reality is his mood starting to improve, but continues to struggle with reverting back to unhealthy coping skills at times. Client shared his realistic, desired reality would be improved outlook on life, ability to lget go of certain stressors, and consistent use of healthy coping skills. Benefited from group as client was able to identify current and desired mental health state. Will continue IOP to prevent decompensation, increase utilization of healthy coping skills, and challenge distorted thoughts. Narrative Note: []
--- NOTE | 2019-03-21 11:15 | BH.SGPN.GN ---
Behaviors/Verbalizations/Mental Status: [] Eye contact is good. Motor activity is appropriate. Appearance is casual. Speech is Appropriate. Mood is euthymic. Affect is full. Thoughts are linear and logical. No evidence of psychosis. Client Response/Progress/Benefit: [] Pt was an active participant in group discussion and activity. Able to identify obstacles and challenges which are preventing him from achieving his desired reality which included; isolating, unhealthy coping, self-doubt, and negative thinking. Active during activity. Pt along with peers identified 7 obstacles during the activity and developed 3 strategies to overcome those 7 obstacles to wellness and desired reality. Group wrote down the strategies and added them to their program binder. Benefited from group by identifying obstacles and solutions to desired reality. Narrative Note: []
--- NOTE | 2019-03-21 13:51 | PCM.BH.PN_ITS ---
Progress Note Progress Note: History of Present Illness/Interim History: [] Patient is a 23-year-old single male who is seen in follow-up at the [facility]. I last saw him 5 weeks ago when he was admitted to the program. Patient states that he is doing well in the IOP program. His anxiety symptoms are much improved. He is still somewhat depressed at times but feel his his mood is also much less sad than it was. He denies any suicidal ideation whatsoever now. He is sleeping better about 6 hours a night and has a better routine to keep regular hours in his sleep. He feels he is learning skills at the IOP program to help him manage his himself better. He is tolerating his Zoloft 50 mg p.o. daily well. Current Psychiatric Medications: [Zoloft 50 mg p.o. daily (x5 weeks).] Mental Status Examination: [Patient is a 23-year-old male who appears normal for stated age. He is casually dressed and groomed with good hygiene. He is cooperative during the interview and has no psychomotor agitation or retardation. Speech is normal rate and rhythm and fluent with no pressure. Mood is depressed but improving. Affect is full and euthymic today. Thought processes are organized and goal-directed. Thought content: No evidence of suicidal or homicidal ideation. No evidence of thoughts of . No evidence of hallucinations or delusions. Judgment is intact Insight improving. Impulsivity low.] Diagnoses: [] Colbert I: [Major depressive disorder recurrent severe without psychosis, anxiety disorder NOS] Colbert II: [] Cluster B traits?mild Colbert III: Negative Colbert IV:[]] Primary support, career issues Plan: [She will continue the IOP program at [facility] as the support, education, structure, individual and group therapy will hopefully prevent worsening of his condition. He agrees that if it any time he does not feel safe he will notify us or go to the emergency room. The risks, options, possible complications and side effects of the medication was were discussed with the patient and he understands and accepts these. The patient refuses an increase in his Zoloft. He feels he is improved to a level that he is okay with. He refused any further medications or increase in dose. I will refill his Zoloft prescription. I will see him in follow-up in 3 to 4 weeks.]
--- NOTE | 2019-03-27 10:02 | BH.SGPN.GN ---
Behaviors/Verbalizations/Mental Status: []Client alert and oriented, neatly dressed and groomed. Eye contact fair. Motor activity appropriate. Speech within normal limits. Affect congruent-nodding, mood euthymic. Thoughts linear, logical, no signs of hallucinations or delusions. Client Response/Progress/Benefit: []Client was attentive and often nodding during discussion. Client participated in discussion of the quote and shared belief that people do not always have the choice of their circumstances, but one can control their response. Client nodding and attentive while the group identified barriers that keep one from choosing a new and healthier path to mental wellness which included; unhealthy habits, fear of failure, procrastination, stigma, lack of supports, and negative thinking. Attentive during psychoeducation on the chapters of life. Client agreed with peers to choose a different path, one needs awareness and opposite action. Client reported he was not sure what made him want to change his mental health path. Benefited from increased awareness and education on barriers to choosing new wellness paths and chapters of life. Progress is difficult to measure in a group setting as client is often quiet and declines to share. However, his daily symptoms tracker scores show a reduction in intensity of symptoms which is a positive. Will continue IOP tx to prevent decompensation and further increase use of healthy coping skills. Narrative Note: []
--- NOTE | 2019-03-27 13:51 | BH.MDN_ITS ---
Multi-Disciplinary Note - Note 30-min Individual Time Started:: 12:14 Date: 03/27/19 Purpose of session/treatment goals addressed:: Purpose of session was to assess pt's current symptoms and stressors. Other topics included: reviewing treatment progress, reinforcing healthy coping, and discussion about tentative discharge plan. Eye Contact:: Good Motor Activity:: Appropriate Appearance:: Casual Speech:: Appropriate Mood:: Euthymic Affect:: Congruent Thoughts:: Linear, Logical, No evidence of hallucinations/delusions noted Staff Interventions:: Therapist used open ended questions to elicit pt's current symptoms and stressors. Therapist processed recent panic attack while at work, assisting pt with identfying potential triggers and skills that helped pt manage his anxiety. Therapist reviewed pt's treatment progress since starting [facility]. Therapist reinforced which healthy coping skills and strategies seem to be most effective with helping pt manage emotions. Therapist discussed tentative discharge plan. Therapist gave pt homework to call his outpatient counselor to set up a appointment. Client Response:: Pt reported he had a rough night while at work. Pt stated he had a mini panic attack while working in which he chose to go to the staff break room for twenty minutes to help calm himself down. Pt reported he is unsure if his panic attack was triggered from taking his medications later in the day than usual or if it was because he was feeling stress with doing a new task at work that wasn't going well. Pt stated in the future he plans to practice any new tasks with his co-workers to help build his confidence so he doesn't feel as anxious or make as many mistakes. Pt reported his perspective was more negative throughout the rest of the night, but he was able to finish his shift and despite having urge to drink alcohol he refrained from drinking. Pt stated he reminded himself of the consequences of drinking, which helped him maintain his sobriety. Pt reported he continued to be anxious on Tuesday afternoon, but was able to challenge his perspective in the evening which helped increase his positivity and improve his mood. Pt stated his weekend went really well with improved mood, hanging out with friends, and ability to manage his emotions easily. Pt reported he is doing better with regulating emotions, using healthy coping skills, challenging his negative thinking, maintaining sobriety, and being more social. Pt stated he believes he is ready to discharge from [facility] next week. Pt reported he will contact his therapist to schedule a counseling appointment so it doesn't have any lapse in treatment post-discharge from [facility]. Risks/Concerns:: Pt denies current suicidal ideation, plan, or intention to date. future focused. Progress Toward Goals/Plan:: Pt demonstrating progress as evidenced by pt reportin improved mood, increased use of healthy coping skills, increased socialization, challenging negative and distorted thoughts, and no suicidal ideation in two weeks. Pt did have a panic attack last week, but was able to manage his emotions more effectively following the panic attack. Pt did report some concerns about experiencing fuzzy reality on Tuesday evening, but isn't sure if it was due to his sleep deprivation. Plan is to inform psychiatrist about the fuzzy reality experience. Plan is also for pt to discharge from [facility] next week. Time Stopped:: 12:50
--- NOTE | 2019-03-28 13:39 | BH.COMM ---
Communication Note - Communication with Client Communication Note: Pt did not show for IOP today.
== END 2019-03-29 23:59 ==
LOC: BHIOP 09:00
PROVIDERS: Referring Provider Psychiatry & Neurology Psychiatry; Visit Provider Psychiatry & Neurology Psychiatry
DX: F33.2 Major depressive disorder, recurrent severe without psychotic features (principal); F41.9 Anxiety disorder, unspecified
CPT/HCPCS: H0035; 90832; 90834; 90837; 90853

== ENCOUNTER 2019-04-02 09:00 | Outpatient (RCR) | payer BC, SELFPAY ==
[2019-03-30 01:12] VITALS: BP 116/76; PULSE 72; RESP 16
--- NOTE | 2019-04-02 09:06 | BH.SGPN.GN ---
Behaviors/Verbalizations/Mental Status: [Client alert and oriented, casual dress, hygiene tended to. Eye contact good. Motor activity appropriate. Speech within normal limits. Affect congruent, mood euthymic and anxious. Thoughts linear, logical, no signs of hallucinations or delusions. Reviewed client?s symptom tracker, no signs of suicidal ideation, plan, or intent as of today.?] Client Response/Progress/Benefit: [Pt receptive of session, engaged in group discussion and willing to process with the group. Emotion for today is nervous/excited, as Pt explained he has been able to see the progress he is making which is evidenced by increased confidence levels and ability to socialize with others in group settings. Pt went on to describe this as a mental health ?win? 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 Additional win identified as successfully managing a crisis in the workplace without experiencing panic. Noted current stressor as having to decide what to begin investing his free time in between two new projects. Pt appeared to benefit from the support of the group and structured environment. Pt recommended continued IOP tx to continue to promote change behaviors, increase consistent skill application to anxiety management, and prevent decompensation.] Narrative Note: []
--- NOTE | 2019-04-02 10:20 | BH.SGPN.GN ---
Behaviors/Verbalizations/Mental Status: []Client alert and oriented, neatly dressed and groomed. Eye contact good. Motor activity appropriate. Speech within normal limits. Affect congruent, mood euthymic. Thoughts linear, logical, no signs of hallucinations or delusions. Client Response/Progress/Benefit: []Client was attentive and quiet, but he was nodding frequently throughout session. Client reported asking for help was a big change for him. Listened as the group identified benefits to making changes in our lives which included: improving one?s mental health, increasing confidence, breaking out of one?s comfort zone, and reducing unhealthy coping skills. Group then identified barriers to change or what keeps us from making changes which included: it is easier to not change, lack of trust, lack of resources, lack of courage to change, lack follow through, negative thinking, and fear. Client participated along with group in activity where they identified and discussed the emotions related to change. Client was attentive during psychoeducation on the change process. Benefited from increased awareness and understating of emotions, benefits, and barriers related to change. Progress noted as client reports decreased depressive symptoms, no more suicidal ideations, and improved ability to cope with stressors. Will discharge from IOP tomorrow, but he can benefit from one more IOP day to reinforce healthy coping skills. Narrative Note: []
--- NOTE | 2019-04-02 11:20 | BH.SGPN.GN ---
Behaviors/Verbalizations/Mental Status: []Client alert and oriented, casually dressed and groomed. Eye contact good. Motor activity appropriate. Speech within normal limits. Affect congruent, mood euthymic. Thoughts linear, logical, no signs of hallucinations or delusions. Client Response/Progress/Benefit: []Client engaged participant AEB pt listening attentively to others and engaging in group activity. Client participated in the activity and processed emotions and barriers associated with making change. Client appeared to connect with discussion on weighing the pros and cons associated with change and benefited from learning to do so through use of decisional balance sheet. Identified he is currently in maintenance stage of change because he is focusing on reinforcing the healthy skills he has recently adapted to help maintain progress. Progress noted in ability to identify which stage of change she is currently in. Recommended continued IOP to maintain gains, continue to use healthy coping skills and prevent decompensation. Narrative Note: []
--- NOTE | 2019-04-03 09:52 | BH.AFTERPLAN ---
Aftercare Plan - Demographics Treatment End Date:: 04/03/19 Psychiatrist:: Shiela Katz Psychiatrist Office #:: [phone] [facility]/IOP Therapist:: Syl Martines Therapist Phone #:: [phone] - Medications Home Medications: Home Medications Sertraline HCl [Zoloft] 50 mg PO DAILY 02/14/19 Sertraline HCl [Zoloft] 50 mg PO DAILY 30 Days #30 tab 03/21/19 - Plan Details Progress/Aftercare Plan Details:: Per self-report symptoms questionnaire you have a 100% decrease in both anxiety and depressed symptoms at discharge compared to when you started IOP. You have applied healthy coping skills to help manage depressed and anxious symptoms. You have improved awareness of your distorted and negative thought patterns. You not only have increased awareness of negative thoughts, but also are able to challenge and reframe thoughts. You are engaging in more activities outside the home with going to social events, working on new projects, and decreasing isolative behaviors. Strategies for Success:: 1. Continue positive self-talk. 2. Opposite Action - remember if you wait to feel good before you do something, you will wait a long time. 3. Recognize and challenge negative and distorted thoughts. 4. Engage in self-care activities on a daily basis. 5. NATURE - make time to enjoy and explore various hikes - Appointments Appointments/Referrals to Other Services:: 1. Schedule with new outpatient therapist Gemini Magallon at the counseling center for [facility]. 2. On waitlist for psychiatry at [facility].
--- NOTE | 2019-04-03 10:20 | BH.SGPN.GN ---
Behaviors/Verbalizations/Mental Status: []Client alert and oriented, casually dressed and groomed. Eye contact good. Motor activity appropriate. Speech within normal limits. Affect congruent to topic being discussed, mood euthymic, anxious, positive. Thoughts linear, logical, no signs of hallucinations or delusions. Client Response/Progress/Benefit: []Pt passive participant AEB pt providing limited input during discussion however appeared to listen attentively to peers. Pt appeared to connect with others comments about the negative impact of defining self by mental illness. Group identified social stigma can come from how the media, society, and upbringing portray mental illness. Group identified media and society portray mental health as: dangerous, negative, not good enough, abnormal, and romanticize it. Pt appeared to agree with others that mental health stigma contributes to people hiding the fact they have any mental health problems out of fear of judgment. Pt seemed to benefit from increased awareness of how societal and internal mental health stigma can impact functioning. Pt has made significant progress on his treatment goals and no longer meet medical necessity for [facility] level of care. Pt is to discharge from [facility] today. Narrative Note: []
--- NOTE | 2019-04-03 11:25 | BH.SGPN.GN ---
Behaviors/Verbalizations/Mental Status: [Client alert and oriented, casually dressed and groomed. Eye contact fair to good. Motor activity appropriate. Speech within normal limits. Affect congruent, mood anxious and dysthymic. Thoughts linear, logical, no signs of hallucinations or delusions. ] Client Response/Progress/Benefit: [Client responded well to session, engaged in activity, actively listening and nodding throughout discussion. Group identified the benefits of addressing stigma which included; increased self-confidence, decreased feelings of shame or unworthiness, improved relationships, and increased willingness to ask for help. Client helped the group identify thoughts and behaviors people engage in that reinforce stigma. Client discussed that self-deprecating humor and unrealistic expectations of self have influenced his own opinion on mental health and reinforced stigma. Group brainstormed strategies to combat social and perceived stigma which included; changing personal language used, sharing positive mental health related media, communicating with supports, attending therapy, and increasing psychoeducation of self and others to reduce labeling behaviors. Client reported he will practice increasing use of affirmations in order to increase self-confidence and reduce self-deprecating language when becoming anxious . Appeared to benefit from increasing awareness of impact of stigma on mental health and identifying strategies for beginning to combat self and social stigma related to mental health. Client recommended continued IOP tx to increase consistent use of internal coping mechanisms, maintain gains made, continue to improve anxiety and depression management, and prevent decompensation.] Narrative Note: []
--- NOTE | 2019-04-03 15:01 | BH.MDN_ITS ---
Multi-Disciplinary Note - Note 30-min Individual Time Started:: 09:25 Date: 04/03/19 Purpose of session/treatment goals addressed:: Purpose of session was to assess current symptoms and stressors. Other topics included: identifying treatment progress, identifying strategies that can help him with stay successful, and solidfying aftercare post-discharge. Eye Contact:: Good Motor Activity:: Appropriate Appearance:: Casual Speech:: Appropriate Mood:: Euthymic Affect:: Congruent Thoughts:: Linear, Logical, No evidence of hallucinations/delusions noted Staff Interventions:: Therapist utilized open ended questions to elicit pt's current symptoms and stressors. Therapist elicited pt's thoughts about IOP treatment progress. Therapist collaborated with pt to identify strategies and coping skills that can help pt maintain treatment progress. Therapist provided support by using active listening. Client Response:: Pt reported he feels ready for IOP discharge because he has made significant progress since starting IOP. Pt reported he has had signficiant decrease in both his anxious and depressive symptoms. Pt shared he is able to go in public experiencing manageable anxiety. Pt stated she has a positive outlook on life and hasn't experienced suicidal thoughts in over 3 weeks. Pt reported she has improved motivation and is starting to enjoy engaging in activities again. Pt identified strategies that can help him maintain progress include: positive self-talk, opposite action, challenging negative thoughts, self-care, and going on hikes. Pt stated he is still on the wait list for a psychiatrist, but has enough medications as of right now. Pt reported he has his counseling appointment on 04/16/19 with his new therapist at the [facility] center [facility]. Risks/Concerns:: Pt denies current suicidal ideation, plan or intention to date. Progress Toward Goals/Plan:: Pt has made significant treatment progress with reduction in anxious and depressive symptoms. Pt has increased use of healthy coping skills to manage mental health symptoms. Pt has decreased isolative behaviors, is able to identify and challenge distorted thoughts, and has increased pleasure in activities. Pt is to discharge from IOP today. Plan is for pt to have follow up counseling on 04/16/19 at the counseling center and is still on the wait list for psychiatry. Time Stopped:: 09:55
--- NOTE | 2019-04-03 15:26 | BH.DS ---
Discharge Summary - Demographics Date of Admission:: 02/13/19 Discharge Date: 04/03/19 Presenting Problems at Admission:: Pt presented at admission from referral by [facility] for worsening depression and increased suicidal ideation. ideation. Pt endorsed at admission his mood as down and very sad. He endorsed hopelessness, worthlessness, anhedonia and guilt. He was not able to function as well at work or at home and has been isolating himself. Discharge Diagnoses:: Major depressive disorder recurrent severe without psychosis, anxiety disorder NOS Reason for Discharge:: Pt has made significant progress on his treatment progress and no longer meets medical necessity for [facility] level of care. - Treatment Progress During Treatment & Response: Per DSM 5 cross cutting measure pt has a 100% decrease in both anxiety and depressed symptoms at discharge when compared to admission self-report scores. Pt applied healthy coping skills to help manage depressed and anxious symptoms. Pt has improved awareness of distorted and negative thought patterns with ability to challenge and reframe thoughts. Pt is engaging in more activities outside the home with going to social events, working on new projects, and decreasing isolative behaviors. Pt was a quiet, passive participant during group sessions, but attentively listened to peers comments and took notes. Pt often completed homework given from group and individual sessions. Issues Still to be Addressed:: Pt could benefit from continued focus on reinforcing healthy coping skills, challenge distorted thoughts, and continuing to increase social connections. Also could benefit from increasing self-confidence. Discharge Recommendations/Instructions:: 1. Counseling appointment on 04/16/19 at the [facility]. 2. Pt currently on wait list for psychiatry at [facility]. Discharge Handout: Complete Discharge Handout with client on aftercare options and continuity of care.
== END 2019-04-03 14:00 | disposition home or self-care (01) ==
LOC: BHIOP 09:00
PROVIDERS: Referring Provider Psychiatry & Neurology Psychiatry; Visit Provider Psychiatry & Neurology Psychiatry
DX: F33.2 Major depressive disorder, recurrent severe without psychotic features (principal); F41.9 Anxiety disorder, unspecified
CPT/HCPCS: H0035; 90832; 90853

== ENCOUNTER 2019-10-11 17:32 | Emergency (ER) | payer BC, SELFPAY ==
[2019-10-11 17:32] VITALS: BP 152/77; PULSE 81; RESP 16; TEMP 36.6; O2SAT 98; BMI 33.4
--- NOTE | 2019-10-11 17:45 | ED.VIS.GEN ---
History of Present Illness Chief Complaint: Wound Narrative: Patient presenting for evaluation after a tick bite. Patient reports that he noted a tick on his left wrist. He was able to remove it, but reports there is a small rash in the area. Patient reports that he thinks it was only present for potentially couple of hours. He denies any fevers. Denies any constitutional symptoms. He denies any medication allergies or underlying medical problems. Review of systems otherwise negative. Past Medical History - Allergies and Home Meds Allergies/Adverse Reactions: Allergies No Known Allergies Allergy (Verified 02/14/19 10:21) Primary Care Physician: Care Physician,No Primary [Primary Care Provider] - Smoking Status: Never smoker Review of Systems All systems negative except as indicated General: Denies: Chills, Fever, Sweats Eyes: Denies: Visual changes - bilaterally, Diplopia ENT: Denies: Rhinorrhea, Sore throat Cardiovascular: Denies: Chest pain, Palpitations Respiratory: Denies: Dyspnea, Cough, Dyspnea on exertion Gastrointestinal: Denies: Abdominal pain, Nausea, Vomiting, Diarrhea, Melena, Hematochezia Genitourinary: Denies: Dysuria, Hematuria, Frequency Musculoskeletal: Denies: Back pain, Extremity Pain Skin: Reports: Rash Neurological: Denies: Headache, Weakness, Numbness Physical Exam Vital Signs/Narrative: Vital Signs Temp Pulse Resp BP Pulse Ox 10/11/19 17:32 97.8 F 81 16 152/77 H 98 Inital Vital Signs reviewed: Yes General: Well nourished, Well developed. Negative for: Acute Distress Head: Normocephalic, Atraumatic Eyes: EOMI ENT: Moist mucous membranes Cardiovascular: Regular rate, Regular rhythm Respiratory: No distress Extremities: - - Right forearm exam shows an area of erythema measuring approximately half a centimeter that is blanching. No evidence of large target lesion. No tenderness to the area or lymphangitic streaking. Diagnostic/Tx/Re-eval - Medical Decision Making Patient presented status post tick bite. He does not appear to have any retained head parts or mouthparts. There is a mild amount erythema in the area, so I feel that the benefits outweigh the risks of providing the patient with a single one-time dose of 200 mg of doxycycline. He was provided with this, and was given signs and symptoms for which to return. ED Disposition - Plan for ED Patient: Disposition: Home or Assisted Living Diagnosis: Tick bite Instructions: ED Bite Tick Abx Tx Referrals: Care Physician,No Primary [Primary Care Provider] - Additional Instructions: Followup with your PCP as needed
[2019-10-11] MEDS: Doxycycline 100 MG CAPSULE 200 MG PO (17:57)
== END 2019-10-11 18:17 | disposition home or self-care (01) ==
LOC: ED 18:09
PROVIDERS: Emergency Provider Emergency Medicine
DX: S60.862A Insect bite (nonvenomous) of left wrist, initial encounter (principal); R21 Rash and other nonspecific skin eruption; W57.XXXA Bitten or stung by nonvenomous insect and other nonvenomous arthropods, initial encounter; Y93.9 Activity, unspecified; Y92.9 Unspecified place or not applicable; Y99.9 Unspecified external cause status
CPT/HCPCS: 99283

== ENCOUNTER 2020-10-16 16:25 | Emergency (ER) | payer BC, SELFPAY ==
[2020-10-16 16:26] VITALS: BP 125/83; PULSE 118; RESP 15; TEMP 36.4; O2SAT 96; BMI 36.9
--- NOTE | 2020-10-16 16:33 | EKG12_ITS ---
Test Reason : CP Blood Pressure : / mmHG Vent. Rate : 114 BPM Atrial Rate : 114 BPM P-R Int : 168 ms QRS Dur : 098 ms QT Int : 324 ms P-R-T Axes : 037 -51 033 degrees QTc Int : 446 ms Sinus tachycardia Left anterior fascicular block Abnormal ECG Confirmed by JOANNE MICHEL, SHIVA ([id number]), offline editor DORIS LEMON ([id number]) on 10/21/2020 10:02:24 A M Referred By: YASMANY Confirmed By:JAQUELIN RUBIO MD
--- NOTE | 2020-10-16 16:34 | EDS_ITS ---
HPI History of Present Illness Chief Complaint: Chest Pain Informant: patient Onset/Context/Timing Onset: Today Activity at onset: sudden Timing: Intermittent Quality: Positive for Heaviness and Sharp Location: Substernal, Right Chest and Left Chest Current Severity: Moderate Maximum Severity: Moderate Worsened By: Movement of Arm and Breathing Relieved By: Nothing Narrative Narrative: The patient is a 24-year-old male with history of anxiety and depression who presents to the emergency department chest pain. Patient states he was in his normal state of health. He states that he was at work. He began to have chest pain. He states it is a sharp, stabbing pain. He states the middle of his chest and is worse when he moves or breathes. Does not radiate down his arms. He states he never really had pain like this before. He cannot recall any injury. He denies any fevers or chills. He denies cough. He has no history of pulmonary embolus or DVT. He has no history of coronary vascular disease. Prior Similar Symptoms: No Recent Illness/Hospitalization: No CVD Risk Factors: Positive for Family History 1' </=55; Negative for Hypertension, Diabetes and Hypercholesterolemia PE Risk Factors: Negative for Recent Travel/Surgery, Recent Immobilization, Prior DVT or PE, Cancer and OCP + Smoking + >/=35 PFSH [facility] Medical History Anxiety Severe recurrent major depression without psychotic features Home Medications bupropion HCl [Wellbutrin XL] 150 mg PO DAILY 10/16/20 [History Last Taken Unknown] cariprazine [Vraylar] 1.5 mg PO DAILY 10/16/20 [History Last Taken Unknown] naproxen 500 mg PO BID #14 tab 10/16/20 [Rx Last Taken Unknown] Allergy/AdvReac Type Severity Reaction Status Date / Time No Known Allergies Allergy Verified 10/16/20 16:28 Surgical History (Updated 10/16/20 @ 16:49 by Sharon Pardo) History of appendectomy Social History Smoking Status: Never smoker ROS ROS ED Constitutional Constitutional ED: Denies chills or fever(s) Eyes Eyes: Denies blurry vision or change in vision ENT ENT ED: Denies ear pain or sore throat Cardiovascular Cardiovascular: Reports chest pain Respiratory/Chest Respiratory/Chest: Denies cough, dyspnea or dyspnea on exertion Gastrointestinal Gastrointestinal: Denies abdominal pain, nausea or vomiting Genitourinary Genitourinary ED: Denies dysuria or urinary frequency Musculoskeletal Musculoskeletal: Denies arthralgias or myalgias Integumentary Denies rash Neurologic Neurologic: Denies headache(s) or paresthesias Psychiatric Psychiatric: Denies anxiety or depression Endocrine Endocrinology: Denies polydipsia or polyuria Allergic/Immunologic Allergic/Immunologic ED: Denies urticaria EXAM Physical Exam Const Vital Signs: 10/16/20 16:26 10/16/20 16:48 Temperature 97.6 F L Temperature Source Temporal Pulse Rate 118 H Respiratory Rate 15 Respiratory Effort Normal Non-Labored Respiratory Pattern Normal Blood Pressure 125/83 H Blood Pressure Mean 97 Pulse Ox 96 Oxygen Delivery Method Room Air Room Air Oxygen Flow Rate (L/min) 97 Positive well nourished and well developed General Appearance ED: well developed HEENT Reports normocephalic, head/scalp atraumatic and moist mucous membranes Eyes PERRL and EOMs intact bilaterally Neck no lymphadenopathy and supple General: Negative for tenderness Chest Wall inspection of chest normal Resp normal respiratory effort and clear to auscultation bilaterally Cardio regular rhythm and no murmurs Rate: tachycardic GI normal to inspection, nondistended, normoactive bowel sounds Palpation: Negative for tender, guarding or rebound tenderness present Back/Spine no CVA tenderness Cervical Spine: Negative for cervical spine tenderness Thoracic Spine / Upper Back: Negative for thoracic spinal tenderness Extremity normal to inspection General Extremety ED: Negative for tenderness Neuro oriented x3 and CN's II-XII intact bilaterally Neuro Narrative: No focal deficits appreciated. Sensorium / Orientation: alert Psych mental status grossly normal Skin no rashes or lesions noted, no wounds and skin turgor normal Heart Score History: Slightly/Non-Suspicious ECG: Normal Age: </= 45 years Risk Factors: 1 or 2 Risk Factors Troponin: </= Normal Limit Score: 1 MDM MDM MDM Narrative Medical decision making narrative: The patient presents to the emergency department chest pain. There is a component that is reproducible. He has no history of coronary vascular disease. EKG was obtained on arrival. It was sinus tachycardia. There is no evidence of acute ischemia. The patient is low risk. He has a heart score of 1. Metabolic work-up was pursued. D-dimer was negative. Chest x-ray reviewed by both myself and the radiologist shows no focal infiltrative process, pneumothorax, or other dangerous process. D-dimer is negative. Cardiac enzymes are also unremarkable. At this point, I do feel the patient is safe for outpatient follow-up. I will treat him with anti-inflammatories. He will be discharged home. Impression 1. Chest pain Lab Data Attestation: I reviewed the patient's lab results. Labs: Laboratory Results - last 24 hr 10/16/20 10/16/20 10/16/20 16:36 16:36 16:36 WBC 10.5 RBC 4.93 Hgb 15.0 Hct 43.5 MCV 88.2 MCH 30.4 MCHC 34.5 RDW Std Deviation 38.6 RDW Coeff of Rashid 12.0 Plt Count 325 MPV 10.2 Immature Gran % (Auto) 0.300 Neut % (Auto) 77.3 H Lymph % (Auto) 14.6 L [place] % (Auto) 7.0 Eos % (Auto) 0.5 Baso % (Auto) 0.3 Absolute Neuts (auto) 8.1 H Absolute Lymphs (auto) 1.53 Nucleated RBC % 0 D-Dimer Quant (PE/DVT) < 0.27 L Sodium 136 Potassium 3.6 Chloride 106 Carbon Dioxide 23.0 Anion Gap 7 BUN 17 Creatinine 0.96 Estim Creat Clear Calc 126.37 Est GFR (MDRD) Af Amer 123 Est GFR (MDRD) Non-Af 102 BUN/Creatinine Ratio 17.7 Glucose 102 Calcium 9.5 Troponin I < 0.015 Radiography Diagnostic Testing: Radiology Impression Chest X-Ray 10/16/20 16:45 IMPRESSION: No radiographic evidence of acute cardiopulmonary disease. at 1659 Reported and signed by: Robbie Hughes MD Electronically Signed: Robbie Hughes MD at 16:58 EDT Tel , Service support , Discharge Plan Triage Chief Complaint: Chest Pain ED Provider: Mauri Silva Dx/Rx/DC Orders Instructions: ED Chest Pain, Noncardiac Prescriptions: New naproxen 500 MG tablet 500 mg PO BID Qty: 14 RF: 0 No Action bupropion HCl [Wellbutrin XL] 150 mg tablet extended release 24 hr 150 mg PO DAILY RF: 0 Vraylar 1.5 mg capsule 1.5 mg PO DAILY RF: 0 Primary Care Provider: Care Physician,No Primary Referrals: Care Physician,No Primary [Primary Care Provider] -
--- NOTE | 2020-10-16 16:38 | NURSING ---
NO OLD EKGS
[2020-10-16 16:45] LABS: Absolute Lymphocyte Count 1.53 X10^3/uL (0.83-4.51); Absolute Neutrophil Count 8.1 X10^3/uL (2.0-7.7); Basophil# 0.03 X10^3/uL; Basophil% 0.3 % (0-1); Eosinophil# 0.05 X10^3/uL; Eosinophils% 0.5 % (0-5); Hematocrit 43.5 % (40-54); Lymphocyte # 1.53 X10^3/ul (0.83-4.51); Lymphocyte % 14.6 % (19-41); Mean Corp Hgb Conc 34.5 g/dL (32-36); Mean Corpuscular Hgb 30.4 pg (27.0-32.0); Mean Corpuscular Volume 88.2 fL (80-94); Mean Platelet Vol. 10.2 fl (6.2-12.0); Monocyte# 0.73 X10^3/uL; NRBC Flagged by Analyzer 0 % (0-5); Neutrophil # 8.11 X10^3/uL (2.7-7.7); Neutrophil % 77.3 % (47-70); Platelet Count 325 K/mm3 (150-450); RBC Distribution Width SD 38.6 fl (35.1-43.9); Red Blood Count 4.93 M/mm3 (4.6-6.2); White Blood Count 10.5 K/mm3 (4.4-11.0)
--- NOTE | 2020-10-16 16:45 | RAD_ITS ---
HISTORY: chest pain EXAMINATION/TECHNIQUE: XR Chest 1 View: Portable AP upright chest x-ray COMPARISON: 08/13/16 FINDINGS: LINES/DEVICES: None. LUNGS: No consolidation, edema or effusion. No pneumothorax. MEDIASTINUM AND CARDIOVASCULAR STRUCTURES: Cardiac silhouette not enlarged. Central airways and mediastinal contour are unremarkable. BONES AND SOFT TISSUES: No acute bony abnormalities. RAD/Chest 1 View (Portable) IMPRESSION: No radiographic evidence of acute cardiopulmonary disease. at 1659 Reported and signed by: Robbie Hughes MD Electronically Signed: Robbie Hughes MD at 16:58 EDT Tel , Service support ,
[2020-10-16 17:01] LABS: Anion Gap 7 (5-15); BUN 17 mg/dL (7-18); BUN/Creat Ratio 17.7 RATIO (10-20); Calcium,Total 9.5 mg/dL (8.5-10.1); Chloride 106 mmol/L (98-107); Creatinine, Serum 0.96 mg/dL (0.70-1.30); EST Glomerular Filtration Rate 102 mL/min (>60); Est Glom Filt Rate - Afr Amer 123 mL/min (>60); Estimated Creatinine Clearance 126.37 ml/min; Glucose 102 mg/dL (74-106); Potassium 3.6 mmol/L (3.5-5.1); Sodium Level 136 mmol/L (136-145)
[2020-10-16] MEDS: Aspirin 81 MG TAB.CHEW 324 MG PO (17:10)
[2020-10-16] MEDS: Ondansetron 4 MG/2 ML Vial IV (17:11)
[2020-10-16] MEDS: 0.9% Normal Saline 1,000 ML 150 ML IV (17:11)
[2020-10-16 17:17] LABS: D-Dimer Quantitative (DVT/PE) < 0.27 FEU/ug/m (0.27-0.49)
[2020-10-16 17:47] VITALS: BP 132/87; PULSE 87; RESP 20; O2SAT 93
== END 2020-10-16 17:49 | disposition home or self-care (01) ==
LOC: ED 16:54
PROVIDERS: Emergency Provider Emergency Medicine
DX: R07.89 Other chest pain (principal); F33.2 Major depressive disorder, recurrent severe without psychotic features; F41.9 Anxiety disorder, unspecified; Z79.1 Long term (current) use of non-steroidal anti-inflammatories (NSAID); Z79.899 Other long term (current) drug therapy
CPT/HCPCS: 71045; 80048; 84484; 85025; 85379; 93005; 96361; 96374; 99285; J7030; A4216; J2405

== ENCOUNTER 2022-06-22 12:16 | Emergency (ER) | payer BC, SELFPAY ==
[2022-06-22 12:17] VITALS: BP 132/92; PULSE 112; RESP 16; TEMP 36.6; O2SAT 98; BMI 36.9
--- NOTE | 2022-06-22 12:50 | ED.VIS.GI ---
HPI HPI - GI History of Present Illness Chief Complaint: Abd Pain Informant: patient Abdominal Pain/Flank Pain Onset: Today Timing: Intermittent Quality: Cramping Location: Diffuse Current Severity: Mild Maximum Severity: Mild Nausea/Vomiting/Emesis GI Symptom: Negative for Nausea or Vomiting Diarrhea/Melena/Hematochezia GI Symptom: Negative for Diarrhea, Melena or Hematochezia Associated Symptoms Associated Symptoms: Negative for Dysuria, Frequency, Hematuria or Urgency Narrative Narrative: 26-year-old male past medical history depression anxiety. Prior appendectomy. No other abdominal surgeries. He has had some constipation last several days. Did have a bowel movement yesterday. States has been eating more fast food recently. Denies any dysuria. No fever. No vomiting. Prior similar symptoms: Yes Recent Illness/Hospitalization: No PFSH PFSH Medical History Anxiety COVID-19 Severe recurrent major depression without psychotic features Home Medications bupropion HCl 150 mg 24 hr tablet, extended release (Wellbutrin XL) 150 mg PO DAILY 10/16/20 [History Last Taken Unknown] cariprazine 1.5 mg capsule (Vraylar) 1.5 mg PO DAILY 10/16/20 [History Last Taken Unknown] naproxen 500 mg tablet 500 mg PO BID #14 tabs 10/16/20 [Rx Last Taken Unknown] Allergy/AdvReac Type Severity Reaction Status Date / Time No Known Allergies Allergy Verified 06/22/22 12:17 Surgical History History of appendectomy Social History Smoking Status: Never smoker ROS ROS ED ROS Narrative Constipation. Review of Systems ROS Unobtainable: Denies due to encephalopathy Constitutional Constitutional ED: Denies chills or fever(s) ENT ENT ED: Denies ear pain Cardiovascular Cardiovascular: Denies chest pain Respiratory/Chest Respiratory/Chest: Denies cough or dyspnea Gastrointestinal Gastrointestinal: Reports constipation; Denies abdominal pain, diarrhea, melena, nausea or vomiting Genitourinary Genitourinary ED: Denies dysuria or hematuria Musculoskeletal Musculoskeletal: Denies arthralgias Integumentary Denies abscess Neurologic Neurologic: Denies headache(s) Psychiatric Psychiatric: Denies anxiety Endocrine Endocrinology: Denies polydipsia Hematologic/Lymphatic Hematologic/Lymphatic: Denies easy bleeding Allergic/Immunologic Allergic/Immunologic ED: Denies mouth swelling or tongue swelling EXAM Physical Exam Narrative Exam Narrative: 20-year-old male no acute distress vital signs stable afebrile. H EENT exam unremarkable. Moist Riis membranes. Neck nontender no lymphadenopathy. Lungs clear to auscultation bilaterally. Heart regular rhythm rate about 100 no murmur. Abdomen soft nondistended normal bowel sounds no peritoneal signs. Completely nontender abdomen. Right upper right lower quadrant unremarkable. No hernia or mass. No signs of obstruction. Soft with normal bowel sounds. Moving all 4 extremities. Nontender no edema. Back nontender. Neurologically is awake alert with no focal motor deficits. Const Vital Signs: 06/22/22 12:17 Temperature 97.9 F Temperature Source Temporal Pulse Rate 112 H Respiratory Rate 16 Blood Pressure 132/92 H Blood Pressure Mean 105 Pulse Ox 98 Oxygen Delivery Method Room Air Positive well nourished, well developed and obese; Negative for cachectic, contractures or unkempt General Appearance ED: well developed; Negative for unkempt, cachectic, contractures or pallor Nutritional Appearance: obese; Negative for cachectic HEENT Reports moist mucous membranes normocephalic and atraumatic; Negative for trauma or tenderness Eyes PERRL and EOMs intact bilaterally General Eye ED: Negative for pale conjunctiva or scleral icterus Neck no lymphadenopathy, supple and no JVD General: Negative for tenderness Carotids: Negative for other Lymph Lymphatic: Negative for other Resp normal respiratory effort and clear to auscultation bilaterally Effort and Inspection: Negative for respiratory distress or retractions Auscultation: Negative for rales, rhonchi or wheezes Cardio regular rate, regular rhythm, S1 normal heart sound, S2 normal heart sound and no murmurs Rate: Negative for bradycardia Rhythm: Negative for abnormal rhythm GI non-tender, non-distended and no masses Inspection: Negative for abdominal distention Auscultation: normoactive bowel sounds Palpation: soft; Negative for tender, guarding, rigid, hepatomegaly, splenomegaly, hernia, mass, pulsatile mass or rebound tenderness present Back/Spine no CVA tenderness General Back: Negative for CVA tenderness Cervical Spine: Negative for cervical spine tenderness Thoracic Spine / Upper Back: Negative for thoracic spinal tenderness Lumbar Spine / Lower Back: lumbar spinal tenderness Extremity full ROM General Extremety ED: Negative for edema, tenderness or other findings General Extremity: Negative for edema or other findings Neuro CN's II-XII intact bilaterally and moves all extremities Sensorium / Orientation: alert, oriented to person, oriented to place and oriented to time; Negative for orientation impaired, confused, lethargic or stuporous Motor Exam: strength 5/5 throughout Psych mental status grossly normal and thought process normal Appearance: Negative for unkempt Attitude: No agitated Mood & Affect: Negative for depressed, anxious or tearful Skin no wounds General Skin Exam: Negative for jaundice or pallor Lesions: no lesions Rashes: no rashes Trauma: Negative for abrasion Nails: Negative for discolored MDM MDM MDM Narrative Medical decision making narrative: Well-appearing 26-year-old with recent history of constipation. Exam is very benign. KUB will be obtained. Is no signs of obstruction. He has had a prior appendectomy. I do not think he needs any labs or advanced imaging otherwise. Repeat exam patient doing well at 1:55 PM. Abdomen is benign. Exam unchanged otherwise. He had I went over his x-ray. To be discharged home. Plenty of fluids. Fiber. Stool softener as needed. Radiography Diagnostic Testing: Clinical Impression(s) from Imaging Studies KUB X-Ray 06/22/22 13:13 IMPRESSION: Moderate amount of fecal material is seen in the colon. Electronically Signed: Mehran Li MD at 13:23 EST Reading Location ID and State: [address] [place] [address] , Service support , KUB, interpreted by myself, shows slightly increased stool. No acute abnormality. Interpreted both by myself and the radiologist who agree. Discharge Plan Triage Chief Complaint: Abd Pain ED Provider: Brady De La Paz Dx/Rx/DC Orders Clinical Impression: Acute constipation Instructions: ED Constipation (Adult) Prescriptions: No Action bupropion HCl [Wellbutrin XL] 150 mg tablet extended release 24 hr 150 mg PO DAILY Vraylar 1.5 mg capsule 1.5 mg PO DAILY naproxen 500 MG tablet 500 mg PO BID Qty: 14 0RF Primary Care Provider: Care Physician,No Primary Referrals: Juan M Mckeon MD [Med Staff - [employer] Equipment [employer]] - 3-5 Days if not improving Care Physician,No Primary [Primary Care Provider] - Activity Restrictions/Additional Instructions: Your physical exam was fine. Your x-ray showed slightly increased stool consistent with mild constipation. Plenty of fluids. Fruits, vegetables and fiber. Stool softener like MiraLAX as needed. Disposition Disposition: Home, Self Care
--- NOTE | 2022-06-22 13:13 | RAD_ITS ---
STUDY: X-RAY - ABDOMEN/PELVIS REASON FOR EXAM: Male, 26 years old. Constipation TECHNIQUE: Single AP view of the abdomen / pelvis. COMPARISON: None. FINDINGS: There is a moderate amount of colonic fecal material. The visualized liver, spleen and kidneys are grossly normal in size and morphology. Normal soft tissue structures. Normal visualized osseous structures. RAD/Abdomen Single View IMPRESSION: Moderate amount of fecal material is seen in the colon. Electronically Signed: Mehran Li MD at 13:23 EST ,
== END 2022-06-22 14:04 | disposition home or self-care (01) ==
PROVIDERS: Emergency Provider Emergency Medicine; Visit Provider Emergency Medicine
DX: K59.00 Constipation, unspecified (principal); F33.2 Major depressive disorder, recurrent severe without psychotic features; F41.9 Anxiety disorder, unspecified; E66.9 Obesity, unspecified; Z79.899 Other long term (current) drug therapy
CPT/HCPCS: 74018; 99283; A4216

== ENCOUNTER 2024-06-01 18:56 | Emergency (ER) | payer SELFPAY ==
[2024-06-01] VITALS (7 sets, daily range): BP systolic 128–153; BP diastolic 75–100; PULSE 80–112; RESP 16–18; TEMP 36.9; O2SAT 98–100; BMI 36.1
--- NOTE | 2024-06-01 19:16 | EKG12_ITS ---
Test Reason : CP Blood Pressure : */* mmHG Vent. Rate : 101 BPM Atrial Rate : 101 BPM P-R Int : 160 ms QRS Dur : 98 ms QT Int : 330 ms P-R-T Axes : 35 -51 44 degrees QTcB Int : 427 ms Sinus tachycardia Left anterior fascicular block Abnormal ECG Confirmed by ERLINDA FRANCISCO MD ([id number]), scientific editor JUANITA EAGLE ([id number]) on 06/04/2024 8:02:23 AM Referred By: DHARA Confirmed By: ERLINDA FRANCISCO MD
--- NOTE | 2024-06-01 19:39 | EDS_ITS ---
HPI History of Present Illness Chief Complaint: Chest Pain Informant: patient Narrative Narrative: 28-year-old male presenting to the emergency room with left shoulder and chest pain. Patient states that he has had some chronic left shoulder pain and typically sees [facility] for that. He was on gabapentin and Flexeril but is not currently on that. He states that most recently that has been hurting him more and has been using ibuprofen and ice. That was acting up this evening and then he began to experience what he describes as indigestion. He states that has been ongoing for about a week. He states all this made his anxiety worse and his heart began to race and it was too much and so he needed to be seen. He denies any previous DVT or PE history. He notes a familial history of coronary artery disease. [facility] Medical History COVID-19 Anxiety Severe recurrent major depression without psychotic features Home Medications ?Medication ?Instructions ?Recorded ?Last Taken ?Type bupropion HCl 150 mg 24 hr tablet, 150 mg PO DAILY 10/16/20 Unknown History extended release (Wellbutrin XL) cariprazine 1.5 mg capsule 1.5 mg PO DAILY 10/16/20 Unknown History (Vraylar) naproxen 500 mg tablet 500 mg PO BID #14 tabs 10/16/20 Unknown Rx cyclobenzaprine 10 mg tablet 10 mg PO TID PRN Muscle Spasm #20 06/01/24 Unknown Rx TABLETS omeprazole 20 mg capsule,delayed 20 mg PO BID #28 caps 06/01/24 Unknown Rx release Allergy/AdvReac Type Severity Reaction Status Date / Time No Known Allergies Allergy Verified 06/22/22 12:17 Surgical History History of appendectomy Social History Smoking Status: Never smoker ROS ROS ED Constitutional Constitutional ED: Denies chills or weight loss Eyes Eyes: Denies change in vision or diplopia ENT ENT ED: Denies ear pain, rhinorrhea or sore throat Cardiovascular Cardiovascular: Reports as per HPI and chest pain; Denies orthopnea, palpitations or racing heartbeat Respiratory/Chest Respiratory/Chest: Denies cough, dyspnea or orthopnea Gastrointestinal Gastrointestinal: Reports other Details: Dyspepsia ; Denies abdominal pain, diarrhea, nausea or vomiting Genitourinary Genitourinary ED: Denies dysuria, hematuria or urinary frequency Musculoskeletal Musculoskeletal: Reports other Details: Left shoulder pain ; Denies arthralgias or myalgias Integumentary Denies abscess or rash Neurologic Neurologic: Reports paresthesias LUE; Denies headache(s) or weakness Psychiatric Psychiatric: Denies anxiety, depression, suicidal ideation or suicidal thoughts Endocrine Endocrinology: Denies polydipsia, polyphagia or polyuria Allergic/Immunologic Allergic/Immunologic ED: Denies mouth swelling, tongue swelling or urticaria EXAM Physical Exam Const Vital Signs: 06/01/24 18:57 06/01/24 19:35 06/01/24 19:57 Temperature 98.4 F Temperature Source Oral Pulse Rate 112 H 99 Respiratory Rate 18 16 Blood Pressure 137/100 H 152/93 H Blood Pressure Mean 112 112 Pulse Ox 98 100 98 Oxygen Delivery Method Room Air Room Air 06/01/24 20:00 06/01/24 21:00 06/01/24 22:00 Temperature Temperature Source Pulse Rate 95 80 Respiratory Rate 16 Blood Pressure 143/94 H 132/99 H 153/75 H Blood Pressure Mean 110 110 101 Pulse Ox 99 98 Oxygen Delivery Method Positive well nourished and well developed General Appearance ED: well developed and NAD HEENT Reports normocephalic, head/scalp atraumatic and moist mucous membranes Eyes PERRL and EOMs intact bilaterally Neck no lymphadenopathy, supple and no JVD Resp normal respiratory effort and clear to auscultation bilaterally Cardio regular rate, regular rhythm and no murmurs Rate: tachycardic GI normal to inspection, nondistended, normoactive bowel sounds and non-tender Palpation: soft Back/Spine no CVA tenderness and normal ROM Extremity Extremity Narrative: Mild tenderness to palpation diffusely about the left shoulder. I do not appreciate any focal deficits. He has a strong radius pulse. There is no swelling of the upper of the lower extremities. General Extremety ED: Negative for edema General Extremity: Negative for edema Neuro oriented x3 and CN's II-XII intact bilaterally Sensorium / Orientation: alert Motor Exam: strength 5/5 throughout Psych mental status grossly normal Mood & Affect: anxious; Negative for depressed or tearful Skin no rashes or lesions noted and no wounds MDM MDM MDM Narrative Medical decision making narrative: Differential diagnosis includes but not limited to acute coronary syndrome pulmonary embolism aortic dissection gastritis/GERD esophagitis pneumothorax pleural effusion pericarditis Patient's EKG is a sinus tachycardia no concerning ST segments. White count nonspecifically elevated 12.1 D-dimer normal 0.272 sets of cardiac enzymes are normal slight the low sodium at 134 potassium 3.4. I do not believe these to really cause symptoms tonight. May depend interpretation of the chest x-ray is no acute process normal mediastinal silhouette. Patient received Toradol and a GI cocktail. He did have some significant improvement of his symptoms. On the right for him to have some omeprazole as I believe he most likely has some GERD I can also write for some Flexeril which has helped him in the past. He is to call his doctors in [place] who he was seen for this and follow-up. Return if worsening or concerns History & Record Review Discussion w/independent historian: Patient Lab Data Attestation: I reviewed the patient's lab results. Labs: Laboratory Results - last 24 hr 06/01/24 06/01/24 06/01/24 19:31 20:10 21:43 WBC 12.1 H RBC 4.63 Hgb 14.2 Hct 40.4 MCV 87.3 MCH 30.7 MCHC 35.1 RDW Std Deviation 37.2 RDW Coeff of Rashid 11.7 Plt Count 297 MPV 10.0 Immature Gran % (Auto) 0.400 Neut % (Auto) 79.7 H Lymph % (Auto) 12.4 L [place] % (Auto) 6.9 Eos % (Auto) 0.4 Baso % (Auto) 0.2 Absolute Neuts (auto) 9.6 H Absolute Lymphs (auto) 1.50 Nucleated RBC % 0 D-Dimer Quant (PE/DVT) 0.27 Sodium 134 L Potassium 3.4 L Chloride 103 Carbon Dioxide 23.0 Anion Gap 8 BUN 14 Creatinine 0.88 Estim Creat Clear Calc 153.56 Est GFR (MDRD) Af Amer 131 Est GFR (MDRD) Non-Af 109 BUN/Creatinine Ratio 15.8 Glucose 138 H Calcium 9.0 Troponin I High Sens 3 4 Radiography Diagnostic Testing: Clinical Impression(s) from Imaging Studies Chest X-Ray 06/01/24 19:45 IMPRESSION: No radiographic evidence of acute cardiopulmonary disease. Electronically Signed: Chanel Summers MD at 20:53 EST Reading Location ID and State: [id number] / Tel , Service support , Discharge Plan Triage Chief Complaint: Chest Pain ED Provider: Benjamin Sheppard Dx/Rx/DC Orders Clinical Impression: Gastritis, Chest pain, Acute shoulder pain Instructions: ED Chest Pain, Noncardiac, ED GERD (Adult) Prescriptions: New omeprazole 20 mg capsule,delayed release(DR/EC) 20 mg PO BID Qty: 28 0RF cyclobenzaprine 10 mg tablet 10 mg PO TID PRN (Reason: Muscle Spasm) Qty: 20 0RF No Action bupropion HCl [Wellbutrin XL] 150 mg tablet extended release 24 hr 150 mg PO DAILY Vraylar 1.5 mg capsule 1.5 mg PO DAILY naproxen 500 MG tablet 500 mg PO BID Qty: 14 0RF Primary Care Provider: Care Physician,No Primary Referrals: Care Physician,No Primary [Primary Care Provider] - Activity Restrictions/Additional Instructions: Please call your doctor to arrange early follow-up Print Language: Ukrainian Disposition Disposition: Home, Self Care
[2024-06-01] MEDS: Mag Hydrox/Al Hydrox/Simeth 30 ML UDC PO (19:44)
[2024-06-01] MEDS: Lidocaine 2% Viscous15 ML UDC 15 ML PO (19:44)
[2024-06-01] MEDS: Ketorolac 30 MG/ML Syringe IV (19:44)
--- NOTE | 2024-06-01 19:45 | RAD_ITS ---
INDICATION: chest pain EXAMINATION/TECHNIQUE: X-RAY - XR Chest 1 View COMPARISON: 10/16/2020. FINDINGS: LINES/DEVICES: None. LUNGS: No consolidation, edema or effusion. No pneumothorax. MEDIASTINUM AND CARDIOVASCULAR STRUCTURES: Cardiac silhouette not enlarged. Central airways and mediastinal contour are unremarkable. BONES AND SOFT TISSUES: Unremarkable. RAD/Chest 1 View (Portable) IMPRESSION: No radiographic evidence of acute cardiopulmonary disease. Electronically Signed: Chanel Summers MD at 20:53 EST Reading Location ID and State: [id number] / Tel , Service support ,
[2024-06-01 19:46] LABS: Absolute Neutrophil Count 9.6 X10^3/uL (2.0-7.7); Basophil# 0.03 X10^3/uL; Basophil% 0.2 % (0-1); Eosinophil# 0.05 X10^3/uL; Eosinophils% 0.4 % (0-5); Hematocrit 40.4 % (40-54); Hemoglobin 14.2 g/dL (13.0-16.5); Lymphocyte % 12.4 % (19-41); Mean Corp Hgb Conc 35.1 g/dL (32-36); Mean Corpuscular Hgb 30.7 pg (27.0-32.0); Mean Corpuscular Volume 87.3 fL (80-94); Monocyte# 0.84 X10^3/uL; Monocyte% 6.9 % (0-10); NRBC Flagged by Analyzer 0 % (0-5); Neutrophil # 9.63 X10^3/uL (2.7-7.7); Neutrophil % 79.7 % (47-70); Platelet Count 297 K/mm3 (150-450); RBC Distribution Width CV 11.7 % (11.6-14.6); RBC Distribution Width SD 37.2 fl (35.1-43.9); Red Blood Count 4.63 M/mm3 (4.6-6.2); White Blood Count 12.1 K/mm3 (4.4-11.0)
[2024-06-01 20:00] LABS: Anion Gap 8 (5-15); BUN 14 mg/dL (7-18); BUN/Creat Ratio 15.8 RATIO (10-20); Chloride 103 mmol/L (98-107); Creatinine, Serum 0.88 mg/dL (0.70-1.30); EST Glomerular Filtration Rate 109 mL/min (>60); Est Glom Filt Rate - Afr Amer 131 mL/min (>60); Estimated Creatinine Clearance 153.56 ml/min; Glucose 138 mg/dL (74-106); Potassium 3.4 mmol/L (3.5-5.1); Sodium Level 134 mmol/L (136-145); Troponin-I HS (w/2H Reflex) 3 pg/mL (3.0-78.0)
--- NOTE | 2024-06-01 20:26 | CM.ED ---
Social work Reason for referral: no PCP Referral source: case find This SW identified patient's lack of PCP and need for resources. This SW entered patient's room, introducing self and role at [facility]. Patient was sitting up in bed, alert and oriented. Patient accepted SW visit, explaining reason for presentation to [facility] ED today. Patient confirmed lack of PCP and stated a desire to get a new one. Patient accepted resources of [facility] Provider Directory and Karuna Chavez information. Patient accepted resource of how to apply for Medicaid, stating that patient is currently in between jobs and this would be helpful. Through conversation, patient also identified needing resources for counseling and psychiatry. Patient reported being placed at inpatient psychiatric facilities twice in the past due to patient's anxiety and depression. Patient expressed having been to [facility] in the past and needing to get back somewhere. Due to patient expressing struggling to make ends meet while between jobs, the [employer] card was also provided. No other needs identified at this time. Litzy Byrnes, CARD TAPE CONVERTER OPERATOR, RECEIVABLE CLERK
[2024-06-01 21:40] LABS: Reflex Troponin-HS? (from REC) Y
[2024-06-01 22:10] LABS: Troponin-I HS 4 pg/mL (3.0-78.0)
[2024-06-01 22:34] LABS: D-Dimer Quantitative (DVT/PE) 0.27 FEU/ug/m (0.27-0.49)
== END 2024-06-01 22:55 | disposition home or self-care (01) ==
PROVIDERS: Emergency Provider Emergency Medicine; Visit Provider Emergency Medicine
DX: K29.70 Gastritis, unspecified, without bleeding (principal); R07.9 Chest pain, unspecified; M25.512 Pain in left shoulder; G89.29 Other chronic pain; Z86.16 Personal history of COVID-19; Z82.49 Family history of ischemic heart disease and other diseases of the circulatory system
CPT/HCPCS: 71045; 80048; 84484; 85025; 85379; 93005; 96374; 99284; A4216

== ENCOUNTER 2024-09-21 18:10 | Emergency (ER) | payer MEDICAID, SELFPAY ==
[2024-09-21] VITALS (8 sets, daily range): BP systolic 149–165; BP diastolic 88–104; PULSE 91–119; RESP 10–28; TEMP 36.6–36.8; O2SAT 99–100; BMI 37.1
--- NOTE | 2024-09-21 19:01 | EX.ED.DYSGE1 ---
HPI History of Present Illness Chief Complaint: Other, Pain/Inj Informant: patient Narrative Narrative: Presents with indigestion symptoms 45 minutes prior to arrival. States was burping took a Tums settling down however he states for a long time it comes back. He states he has been having normal bowel movements however none today. Denies black or bloody stools. He states he was seen few months ago back for shoulder pain chest pain with blood work. He has been having neck pain muscle pain for years he currently sees pain management he takes Flexeril as needed was told it may be a pinched vessel. This is being managed outpatient. His concern today is his GI symptoms. No history of endoscopies. [facility] Medical History COVID-19 Anxiety Severe recurrent major depression without psychotic features Home Medications ?Medication ?Instructions ?Recorded ?Last Taken ?Type cyclobenzaprine 10 mg tablet 10 mg PO TID PRN Muscle Spasm #20 06/01/24 Unknown Rx TABLETS pantoprazole 40 mg tablet,delayed 40 mg PO DAILY #30 tabs 09/21/24 Unknown Rx release Allergy/AdvReac Type Severity Reaction Status Date / Time No Known Allergies Allergy Verified 09/21/24 18:15 Surgical History History of appendectomy Social History Smoking Status: Never smoker ROS ROS ED Constitutional Constitutional ED: Denies chills, fever(s) or sweats ENT ENT ED: Denies sore throat Cardiovascular Cardiovascular: Denies chest pain, leg edema, palpitations or racing heartbeat Respiratory/Chest Respiratory/Chest: Denies cough, dyspnea or dyspnea on exertion Gastrointestinal Gastrointestinal: Reports abdominal pain; Denies diarrhea, nausea or vomiting Genitourinary Genitourinary ED: Denies dysuria, hematuria or urinary frequency Musculoskeletal Musculoskeletal: Reports myalgias and other; Denies back pain, extremity pain or neck pain Integumentary Denies rash or wounds Neurologic Neurologic: Denies headache(s), paresthesias or weakness EXAM Physical Exam Const Vital Signs: 09/21/24 18:13 09/21/24 18:22 09/21/24 19:11 Temperature 98.2 F Temperature Source Oral Pulse Rate 119 H 108 H Respiratory Rate 22 H 13 Respiratory Effort Normal Non-Labored Respiratory Pattern Normal Blood Pressure 165/104 H Blood Pressure Mean 124 Pulse Ox 100 Oxygen Delivery Method Room Air 09/21/24 19:15 09/21/24 19:30 09/21/24 19:45 Temperature Temperature Source Pulse Rate 108 H 91 99 Respiratory Rate 15 10 L 28 H Respiratory Effort Respiratory Pattern Blood Pressure Blood Pressure Mean Pulse Ox Oxygen Delivery Method 09/21/24 20:00 09/21/24 20:15 09/21/24 20:29 Temperature Temperature Source Pulse Rate 114 H 107 H Respiratory Rate 15 22 H Respiratory Effort Respiratory Pattern Blood Pressure 149/98 H Blood Pressure Mean 115 Pulse Ox Oxygen Delivery Method 09/21/24 20:29 Temperature 97.9 F Temperature Source Pulse Rate 105 H Respiratory Rate 20 H Respiratory Effort Respiratory Pattern Blood Pressure 149/88 H Blood Pressure Mean 108 Pulse Ox 99 Oxygen Delivery Method Positive well nourished and well developed Constitutional Narrative: Anxious, sweaty, nontoxic General Appearance ED: well developed, NAD and pallor HEENT Reports moist mucous membranes normocephalic and atraumatic Eyes General Eye ED: Yes pale conjunctiva Neck full ROM Neck Narrative: No midline tenderness no step-offs. Chest Wall inspection of chest normal and palpation of chest normal Chest: Negative for tenderness Resp normal respiratory effort and normal air movement Effort and Inspection: symmetric chest movement; Negative for respiratory distress Cardio regular rhythm and no murmurs Rate: tachycardic Peripheral Pulses: pulses 2+ throughout GI normal to inspection, nondistended, normoactive bowel sounds and non-tender Palpation: Negative for guarding or rebound tenderness present Extremity normal to inspection General Extremety ED: Negative for edema or tenderness General Extremity: Negative for edema Neuro oriented x3 and no sensory deficits noted Sensorium / Orientation: awake and alert Skin General Skin Exam: pallor MDM MDM MDM Narrative Medical decision making narrative: Interventions / MDM: Differential diagnosis: Gastritis, chronic myalgias Diagnosis considered but do not suspect: Anemia however labs normal. My EKG interpretation: N/A Imaging independently reviewed and interpreted by myself: N/A External documents reviewed: N/A Test considered but not ordered:N/A ED course: Upper GI symptoms with burping no vomiting denies history of black or bloody stools however on exam pallor of conjunctiva and the skin. Tachycardic however also anxious. Establish IV for labs will give IV Pepcid. 2020: Blood work hemoglobin 14.6. BUN 9 creatinine 0.83. Clinically feeling better. Heart rate now in the 90s. He denies any melena. Will place him on a PPI. He will monitor for black or bloody stools. GI follow-up given. As for his myalgias notes chronic this is being managed by his pain doctors. He will follow-up with them. Has Flexeril use as needed. All questions were answered. Re-evaluation: stable Disposition discussed with patient/family/significant other: Patient Case discussed with consulting clinician: N/A This note was generated with [employer] dictation software. It may contain incorrect words, spelling, and punctuation that were not noted in checking the note before signing. Lab Data Attestation: I reviewed the patient's lab results. Labs: Laboratory Results - last 24 hr 09/21/24 19:00 WBC 11.9 H RBC 4.69 Hgb 14.6 Hct 40.3 MCV 85.9 MCH 31.1 MCHC 36.2 H RDW Std Deviation 37.2 RDW Coeff of Rashid 11.9 Plt Count 297 MPV 9.6 Immature Gran % (Auto) 0.300 Neut % (Auto) 80.7 H Lymph % (Auto) 10.7 L [place] % (Auto) 7.3 Eos % (Auto) 0.5 Baso % (Auto) 0.5 Absolute Neuts (auto) 9.6 H Absolute Lymphs (auto) 1.28 Nucleated RBC % 0 Sodium 130 L Potassium 3.3 Chloride 95 L Carbon Dioxide 20.2 L Anion Gap 15 BUN 9 Creatinine 0.83 Estim Creat Clear Calc 164.99 Est GFR (MDRD) Non-Af 122 BUN/Creatinine Ratio 11.0 Glucose 108 H Calcium 9.7 Discharge Plan Triage Chief Complaint: Other, Pain/Inj Other Complaint: Anxiety ED Provider: Maycol Morales Dx/Rx/DC Orders Clinical Impression: Gastritis, Myalgia Instructions: ED Gastritis (Adult) Prescriptions: New pantoprazole 40 mg tablet,delayed release (DR/EC) 40 mg PO DAILY Qty: 30 0RF No Action cyclobenzaprine 10 mg tablet 10 mg PO TID PRN (Reason: Muscle Spasm) Qty: 20 0RF Primary Care Provider: Care Physician,No Primary Referrals: Friend,Chester, DO [Med Staff - Active Staff] - 1-2 Weeks Care Physician,No Primary [Primary Care Provider] - Activity Restrictions/Additional Instructions: Hemoglobin 14.6. Take pantoprazole as prescribed. Follow-up with GI. With your muscle pains you are being managed by your pain management doctors. Follow-up with them. Print Language: Turkish Disposition Disposition: Home, Self Care Discharge Date/Time: 09/21/24 20:33
[2024-09-21 19:18] LABS: Absolute Lymphocyte Count 1.28 X10^3/uL (0.83-4.51); Absolute Neutrophil Count 9.6 X10^3/uL (2.0-7.7); Basophil# 0.06 X10^3/uL; Basophil% 0.5 % (0-1); Eosinophil# 0.06 X10^3/uL; Eosinophils% 0.5 % (0-5); Hematocrit 40.3 % (40-54); Hemoglobin 14.6 g/dL (13.0-16.5); Lymphocyte # 1.28 X10^3/ul (0.83-4.51); Lymphocyte % 10.7 % (19-41); Mean Corp Hgb Conc 36.2 g/dL (32-36); Mean Corpuscular Hgb 31.1 pg (27.0-32.0); Mean Corpuscular Volume 85.9 fL (80-94); Mean Platelet Vol. 9.6 fl (6.2-12.0); Monocyte# 0.87 X10^3/uL; Monocyte% 7.3 % (0-10); NRBC Flagged by Analyzer 0 % (0-5); Neutrophil # 9.61 X10^3/uL (2.7-7.7); Neutrophil % 80.7 % (47-70); Platelet Count 297 K/mm3 (150-450); RBC Distribution Width CV 11.9 % (11.6-14.6); RBC Distribution Width SD 37.2 fl (35.1-43.9); Red Blood Count 4.69 M/mm3 (4.6-6.2); White Blood Count 11.9 K/mm3 (4.4-11.0)
[2024-09-21] MEDS: Famotidine 200 MG/20 ML MDV 20 MG in 0.9% Normal Saline (Pres. free 8 ML 300 MG IV (19:28)
[2024-09-21 19:58] LABS: Anion Gap 15 (5-15); BUN 9 mg/dL (4-19); Calcium,Total 9.7 mg/dL (7.6-11.0); Carbon Dioxide 20.2 mmol/L (21.0-32.0); Chloride 95 mmol/L (98-108); Creatinine, Serum 0.83 mg/dL (0.70-1.20); EST Glomerular Filtration Rate 122 (>60); Estimated Creatinine Clearance 164.99 ml/min (50-250); Glucose 108 mg/dL (70-99); Potassium 3.3 mmol/L (3.3-5.1); Sodium Level 130 mmol/L (133-145)
== END 2024-09-21 20:33 | disposition home or self-care (01) ==
PROVIDERS: Emergency Provider Emergency Medicine; Visit Provider Emergency Medicine
DX: K29.70 Gastritis, unspecified, without bleeding (principal); M79.12 Myalgia of auxiliary muscles, head and neck; Z86.16 Personal history of COVID-19
CPT/HCPCS: 80048; 85025; 96374; 99284; A4216